=== PATIENT | male | born 1955 | race Two or more races ===

== ENCOUNTER 2019-12-18 14:06 | Emergency (ER) | payer MEDICAID, OTHER ==
[2019-12-18] MEDS ORDERED: THIAMINE 100mg/ml INJ (200mg/2ml VIAL) IV ONE (14:15)
[2019-12-18] MEDS ORDERED: SODIUM CHLORIDE 0.9% 1,000 ML IV ONE ×2 (14:15)
[2019-12-18] MEDS ORDERED: ASPirin 81 mg TAB PO ONE (14:15)
== END 2019-12-18 14:28 | disposition left against medical advice (07) ==
LOC: ER 14:06
DX: R07.89 Other chest pain (principal); E86.0 Dehydration
CPT/HCPCS: 93005

== ENCOUNTER 2020-02-03 05:36 | Inpatient (IN) | payer MEDICAID ==
[~2020-02-03] VITALS: Ht 182.9 cm; Wt 90.9 kg
[2020-02-03] MEDS ORDERED: SODIUM CHLORIDE 0.9% 1,000 ML IV ONE ×2 (07:15)
[2020-02-03] MEDS ORDERED: ONDANSETRON HCL 4 MG/2 ML VIAL IV ONE (07:15)
[2020-02-03] MEDS ORDERED: MORPHINE SULFATE 4 MG/ML SYR/VIAL IV ONE (07:15)
[2020-02-03 07:20] LABS: Basophils # (auto) 0 10 ^3/uL (0-0.2); Eosinophils # (auto) 0 10 ^3/uL (0-0.8); Hemoglobin 10.6 g/dL (13.5-17.5); Lymphocytes # (auto) 0.7 10 ^3/uL (0.4-5.4); Monocytes # (auto) 0.2 10 ^3/uL (0-1.3); Platelet Count (auto) 23 10^3/uL (140-450)
[2020-02-03 07:24] LABS: Basophils % (auto) 0.9 % (0.0-2.0); Eosinophils % (auto) 1.1 % (0.0-7.0); Hematocrit 34.1 % (41.0-53.0); Lymphocytes % (auto) 41.1 % (10.0-50.0); Mean Corpuscular Hemoglobin 23.2 pg (28.0-32.0); Mean Corpuscular Volume 74.6 fL (80.0-100.0); Monocytes % (auto) 10.7 % (0.0-12.0); Neutrophils # (auto) 0.8 10 ^3/uL (1.6-8.6); Neutrophils % (auto) 46.2 % (37.0-80.0); Red Blood Cells 4.57 10^6/uL (4.5-5.90)
[2020-02-03 07:42] LABS: White Blood Cell 1.8 10^3/uL (4.4-10.8)
[2020-02-03 07:52] LABS: Chloride 108 mmol/L (98-107); Potassium 3.3 mmol/L (3.5-5.1); Sodium 141 mmol/L (136-145)
[2020-02-03 08:04] LABS: Alanine Aminotransferase 52 U/L (16-61); Albumin 3.3 g/dL (3.4-5.0); Alkaline Phosphatase 125 U/L (45-117); Anion Gap 15 (5-15); Aspartate Aminotransferase 123 U/L (15-37); BUN/Creatinine Ratio 14.3; Bilirubin, Total 3.3 mg/dL (0.2-1.0); Blood Urea Nitrogen 12 mg/dL (7-18); Calcium 7.9 mg/dL (8.5-10.1); Carbon Dioxide 18 mmol/L (21-32); GFR African American 119 mL/min; GFR Non-African American 98 mL/min; Glucose 117 mg/dL (74-106); Total Protein 6.5 g/dL (6.4-8.2)
[2020-02-03] MEDS ORDERED: ALUM & MAG HYDROX-SIMETH LIQ(MAALOX) 30 ML PO ONE ×2 (08:30→08:45)
[2020-02-03] MEDS ORDERED: LORazepam 2MG/ML-1ML VIAL ONE (08:43)
[2020-02-03] MEDS ORDERED: DONNATAL 5ml ORAL Elix (BELLADONNA ALK-PHENOBARB) PO ONE (08:45)
[2020-02-03] MEDS ORDERED: LIDOCAINE VISCOUS 2% 15ML UD PO ONE ×2 (08:45)
[2020-02-03] MEDS ORDERED: LORazepam 2MG/ML-1ML VIAL IV ONE (09:00)
[2020-02-03] MEDS ORDERED: MORPHINE SULF INJ 2 MG/ML SYRINGE 1ML IV PRN (10:45)
[2020-02-03] MEDS ORDERED: NITROGLYCERIN 0.4 MG SL TAB SL PRN (10:45)
[2020-02-03] MEDS ORDERED: LORazepam 2MG/ML-1ML VIAL IV PRN (10:45)
[2020-02-03] MEDS ORDERED: OCTREOTIDE ACETATE 100 MCG in SODIUM CHL 0.9% 50 ML IV ONE (10:45)
[2020-02-03 12:00] VITALS: BP 168/82
--- NOTE | 2020-02-03 12:06 | NUR ---
RECEIVED FROM ED C/C EPIGASTRIC PAIN WITH GI BLEED AND SZ IN ED. NO ACTIVE SZ AT THIS TIME PT AXO. SLOW TO RESPOND, EDUCATED ON POC, ANSWERS QUESTIONS APPROPRIATELY. NEW I V ACCESS OBTAINED. SIDE RAILS PADDED FOR SAFETY. LS CTA, PT ON 2 L NC, SPO2 WNL. PT HTN, MEDICATING FOR HTN. SEE E-MAR. PT ON BANANA BAG AND OCTREOTIDE FOR GI BLEED PREVENTION.
[2020-02-03] MEDS: chlordiazePOXIDE HCL 25 MG CAP PO SCH ×2 (12:58→19:36)
[2020-02-03] MEDS: LABETALOL HCL 5 MG/ML 4ML SYRINGE IV PRN ×2 (13:04→19:38)
[2020-02-03] MEDS ORDERED: ONDANSETRON HCL 4 MG/2 ML VIAL ONE (13:47)
[2020-02-03] MEDS: ONDANSETRON HCL 4 MG/2 ML VIAL IV PRN ×2 (13:56→22:23)
[2020-02-03] MEDS: OCTREOTIDE ACETATE 500 MCG in SODIUM CHL 0.9% 99 ML IV SCH ×2 (14:03→20:56)
[2020-02-03] MEDS: FOLIC ACID 1 MG, MULTIPLE VITAMIN 10 ML, MAGNESIUM SULF SDV 50% 8 MEQ, THIAMINE INJ 100... INJ SCH ×5 (15:53)
[2020-02-03 16:32] VITALS: BP 160/78
--- NOTE | 2020-02-03 19:23 | NUR ---
Opening Shift Note Received report and Assumed care of patient, awake and alert and resting quietly in bed.
[2020-02-03 20:00] VITALS: BP 159/81
--- NOTE | 2020-02-03 20:30 | NUR ---
Bathroom Assisted patient to the bathroom patient self ambulated to and from the bathroom with minimal weakness,
--- NOTE | 2020-02-03 20:35 | NUR ---
Linen Change Provided patient with complete linen change.
[2020-02-03] MEDS: PANTOPRAZOLE 40 MG/10 ML VIAL INJ IV SCH (20:56)
[2020-02-03] MEDS: LACTULOSE 20Gm/30ML SOLN PO SCH (21:05)
--- NOTE | 2020-02-03 21:05 | NUR ---
Physician Call Received call from Dr. Aurora Osullivan, regarding EDG for patient in AM , to evaluate Morning Labs prior to determining if EDG will be perfomed.
--- NOTE | 2020-02-03 22:05 | NUR ---
Family updated on pt status Brother Donal updated on patient's status and condition. All questions and concerns addressed. Family Member verbalized understanding of all subjects covered.
--- NOTE | 2020-02-03 23:05 | NUR ---
Bathroom Patient assisted to the bathroom patient self ambulated to and from the bathroom with minimal weakness.
[2020-02-04] VITALS: BP 126/52
--- NOTE | 2020-02-04 00:21 | NUR ---
PATIENT ROUNDING Patient readjusted in bed, patient reoriented to surroundings patient alert to self at this time.
[2020-02-04] MEDS: chlordiazePOXIDE HCL 25 MG CAP PO SCH ×5 (00:24→23:24)
--- NOTE | 2020-02-04 02:36 | NUR ---
PATIENT ROUNDING Patient readjusted in bed and reoriented to surroundings patient is alert to self at this time.
--- NOTE | 2020-02-04 02:45 | NUR ---
Patient Rounding patient restless in bed, gave patient a warm blanket and reoriented, patient alert to self and place at this time.
[2020-02-04 03:35] LABS: Basophils # (auto) 0 10 ^3/uL (0-0.2); Eosinophils # (auto) 0.1 10 ^3/uL (0-0.8); Hemoglobin 10.3 g/dL (13.5-17.5); Monocytes # (auto) 0.5 10 ^3/uL (0-1.3); White Blood Cell 3.1 10^3/uL (4.4-10.8)
[2020-02-04 03:37] LABS: Eosinophils % (auto) 3.1 % (0.0-7.0); Hematocrit 33.7 % (41.0-53.0); Lymphocytes # (auto) 0.4 10 ^3/uL (0.4-5.4); Lymphocytes % (auto) 14.5 % (10.0-50.0); Mean Corpuscular Hemoglobin 23.2 pg (28.0-32.0); Mean Corpuscular Hgb Conc. 30.5 g/dL (32.0-36.0); Mean Corpuscular Volume 76.1 fL (80.0-100.0); Monocytes % (auto) 16.6 % (0.0-12.0); Neutrophils % (auto) 64.8 % (37.0-80.0); Nucleated Red Blood Cells % 0.1 %; Platelet Count (auto) 22 10^3/uL (140-450); Red Blood Cells 4.43 10^6/uL (4.5-5.90)
[2020-02-04] MEDS: LABETALOL HCL 5 MG/ML 4ML SYRINGE IV PRN ×3 (03:39→20:02)
--- NOTE | 2020-02-04 03:39 | NUR ---
LABETALOL patient blood presser 155/76 medicated per provider order.
[2020-02-04 03:43] LABS: Red Cell Distribution Width 24.1 % (11.8-14.3)
[2020-02-04 03:52] LABS: Albumin 3.1 g/dL (3.4-5.0); Calcium 7.7 mg/dL (8.5-10.1); Potassium 3.7 mmol/L (3.5-5.1)
[2020-02-04 03:56] LABS: INR 1.24 (0.9-1.15); Partial Thromboplastin Time 27.2 sec (23.0-31.2)
[2020-02-04 03:57] LABS: BUN/Creatinine Ratio 14.5; Bilirubin, Total 3.6 mg/dL (0.2-1.0); Total Protein 6.3 g/dL (6.4-8.2)
[2020-02-04 04:00] VITALS: BP 155/76
[2020-02-04] MEDS: ONDANSETRON HCL 4 MG/2 ML VIAL IV PRN ×2 (04:46→21:42)
--- NOTE | 2020-02-04 05:00 | NUR ---
Morning Care Provided patient with clean gown and partial soap water bath. patient tolerated process with minimal distress.
--- NOTE | 2020-02-04 06:41 | NUR ---
Shift END Note will provided shift report and endorse care, patient has episodes of confusion and forgets where he is, patient reoriented easily. patient is very restless through out the shift, patient has taken Zofran thought out the shift due to nausea. patient is able to self ambulate with stand by assist to restroom.
[2020-02-04] MEDS: OCTREOTIDE ACETATE 500 MCG in SODIUM CHL 0.9% 99 ML IV SCH ×2 (06:53→20:03)
[2020-02-04 08:00] VITALS: BP 156/79
--- NOTE | 2020-02-04 08:15 | NUR ---
OPENING NOTE RECEIVED REPORT FROM CAROL ZULETA. PATIENT ON ROOM AIR SATING >95%. FOLLOWING COMMANDS. ASSISTED PATIENT TO BATHROOM AND BACK. ONE BM IN TOILET. PATIENT TOLERATED WELL. SKIN ASSESSED AND INTACT. FOR GTTS AND THEIR TITRATIONS SEE IV SPREAD SHEET. NO SIGNS AND SYMPTOMS OF BLEEDING. ALL FALL AND SAFETY PRECAUTIONS IN PLACE. FOR MORE INFORMATION SEE INTERVENTIONS.
[2020-02-04] MEDS: PANTOPRAZOLE 40 MG/10 ML VIAL INJ IV SCH ×2 (10:23→21:41)
[2020-02-04] MEDS: LACTULOSE 20Gm/30ML SOLN PO SCH ×2 (10:23→21:42)
--- NOTE | 2020-02-04 10:54 | NUR ---
ASSISTED PATIENT TO BATHROOM/LINEN CHANGE WITH MINIMAL ASSISTANCE, HELPED PATIENT TO BATHROOM TO URINATE. SKIN REASSESSED AND NO NEW BREAKDOWN NOTED. COMPLETE LINEN CHANGE PROVIDED
--- NOTE | 2020-02-04 11:29 | NUR ---
AT BEDSIDE MD RAY Byrd BEDSIDE, UPDATED ON PATIENT STATUS, NO NEW ORDERS RECEIVED Addendum: 02/04/20 at 1132 by Carlos Alberto Fleming RN WRONG PATIENT
--- NOTE | 2020-02-04 11:32 | NUR ---
RECEIVED CALL FROM BROTHER AFTER CORRECT PASSWORD WAS GIVEN, UPDATED BROTHER ON PATIENT STATUS. ALL QUESTIONS ADDRESSED AT THIS TIME
[2020-02-04 12:00] VITALS: BP 136/67
[2020-02-04] MEDS: FOLIC ACID 1 MG, MULTIPLE VITAMIN 10 ML, MAGNESIUM SULF SDV 50% 8 MEQ, THIAMINE INJ 100... INJ SCH ×5 (12:17)
--- NOTE | 2020-02-04 12:53 | NUR ---
MD MONTERO AT BEDSIDE UPDATED ON PATIENT STATUS, NEW ORDERS RECEIVED
[2020-02-04 16:00] VITALS: BP 145/79
--- NOTE | 2020-02-04 19:05 | NUR ---
Opening Shift Note Recieved shift report and Assumed care of patient, awake and laying quietly in bed,
[2020-02-04 20:00] VITALS: BP 162/83
--- NOTE | 2020-02-04 20:15 | NUR ---
Bathroom Privileges Stand by assist as patient self ambulated to and from the restroom. patient unable to make provide urine sample at this time.
--- NOTE | 2020-02-04 21:35 | NUR ---
Patient Out of Bed Patient found up at the monitor unpluging wires, Patient educated on the need for the monitor data patient reoriented and repositioned in bed and reinforced education not to pull on or unplug wires from the monitor. patient verbalized understanding at this time.
--- NOTE | 2020-02-04 21:50 | NUR ---
Patient OOB Patient attempting to get out of bed with out stand by assistance, patient reeducated on need to have assistance, patient IV lines remain intact even though patient pulled quite a bit on the lines.
--- NOTE | 2020-02-04 22:00 | NUR ---
Hospitalist Paged To request medication to aid patient with restlessness.
--- NOTE | 2020-02-04 22:10 | NUR ---
Patient OOB Patient out of bed attempting to find items patient reeducated that items are at home with family and reoriented patient to surroundings patient verbalized understanding at this time
--- NOTE | 2020-02-04 22:50 | NUR ---
Received call from
[2020-02-04] MEDS ORDERED: LORazepam 2MG/ML-1ML VIAL IV ONE (23:00)
--- NOTE | 2020-02-04 23:04 | NUR ---
Anxiety / Restlessness Patient medicated per MD order
--- NOTE | 2020-02-04 23:55 | NUR ---
Patient Rounding assisted patient readjust in bed and make comfortable.
[2020-02-05] VITALS (7 sets, daily range): BP systolic 130–169; BP diastolic 67–88
--- NOTE | 2020-02-05 00:30 | NUR ---
RESTLESS/ANXIETY/CONFUSION: Pt very restless, climbing out of bed and stating he is leaving the hospital. Pt states he is currently in [place]. Pt re-oriented to place and situation. Pt states he wants to speak with his brother. Pt's bother, Donal, called and spoke with pt. Pt displeased with conversation and pt states he will take an Uber or Lyft to his desired destination down in [facility]. Pt, however, has no cellphone, wallet, ID, or amaya/credit card. Assisted pt in locating belongings and confirmed pt has none of these items. Pt walked around entire room continuing to search for phone, and pt attempted to go to nurses' station and into other pt's rooms. Pt guided back into bed and contacted pt's brother to speak with pt again. I also spoke with pt's brother Donal. Donal states that perhaps pt needs to be sedated as he believes pt needs to stay in hospital and that he will not come to pick pt up as per pt's request. Pt attempting to locate "U[employer] cecile" on hospital telephone. Pt finally agreed to stay until morning and pt assisted back into bed at 0100. All leads and pulse-ox reattached. To continue to monitor pt.
--- NOTE | 2020-02-05 01:15 | NUR ---
RESTLESS/ANXIETY: Pt continues to climb out of bed. Pt states he heard his brother's voice. Pt assisted back into bed. Pt climbed out of bed again stating he has paperwork to complete. Pt also broke lead to monitor. Pt re-oriented and assisted back into bed. Hospitalist paged and order received for Haldol 2mg IM as pt becoming more and more aggressive towards staff. Pt to be medicated.
[2020-02-05] MEDS ORDERED: HALOPERIDOL LACTATE 5 MG/ML INJ VIAL IM ONE (01:30)
--- NOTE | 2020-02-05 01:31 | NUR ---
RESTLESS/ANXIETY/CONFUSION: Pt very restless, climbing out of bed and stating he is leaving the hospital, patient medicated per MD order
--- NOTE | 2020-02-05 02:00 | NUR ---
OUTBURST Patient is attempting to break bed rail patient reoriented to place and situation patient, patient insists that he needs to go hang out with his brother smoke a cigarette and drink a beer, patient reoriented and educated on why he is in the hospital.
--- NOTE | 2020-02-05 02:17 | NUR ---
VERBALLY ABUSIVE Patient is currently verbally Abusive to staff threatening harm to staff and staff family, patient is determined to leave the hospital, patient has no means of leaving family member called and state patient needs to remain for what ever treatment the Doctor thinks he needs.
--- NOTE | 2020-02-05 02:45 | NUR ---
CODE EDE Patient physically abusive to staff punching and kicking at staff Code Ede called MD hernandez
--- NOTE | 2020-02-05 02:55 | NUR ---
CONFUSED Patient is asking that we let the police in, explained he is in the hospital patient confused and state that he is not in the hospital, Patient yelling for the police in [place] now.
--- NOTE | 2020-02-05 02:58 | NUR ---
Recieved Call from MD orders provided
[2020-02-05] MEDS ORDERED: LORazepam 2MG/ML-1ML VIAL IV ONE ×2 (03:00→06:15)
[2020-02-05] MEDS ORDERED: LORazepam 2MG/ML-1ML VIAL ONE (03:03)
--- NOTE | 2020-02-05 03:03 | NUR ---
Restless /Confusion/ Combative patient medicated per provider order, patient continues to yell out for police, doctor patient reoriented to place and time. patient fails to reoriented at this time.
--- NOTE | 2020-02-05 03:05 | NUR ---
Patient IV OUT / ATIVAN Patient Left AC IV is out Ativan not infused into patient Ativan wasted and redrawn for infusion into left form IV Site
--- NOTE | 2020-02-05 03:10 | NUR ---
Left AC IV IV sited cleaned, manual pressure applied to site, covered in gauze and secured with Coban
--- NOTE | 2020-02-05 03:15 | NUR ---
Hallucinations Patient currently states that he is needs to trim the roses, patient continues to verbally abuse staff and yelling out for police.
[2020-02-05 03:25] LABS: Basophils # (auto) 0.1 10 ^3/uL (0-0.2); Eosinophils # (auto) 0.2 10 ^3/uL (0-0.8); Hemoglobin 10.7 g/dL (13.5-17.5); Mean Corpuscular Hemoglobin 23.3 pg (28.0-32.0); Monocytes # (auto) 0.6 10 ^3/uL (0-1.3); Red Blood Cells 4.58 10^6/uL (4.5-5.90)
[2020-02-05 03:27] LABS: Basophils % (auto) 1.2 % (0.0-2.0); Eosinophils % (auto) 5.2 % (0.0-7.0); Hematocrit 35.1 % (41.0-53.0); Mean Corpuscular Hgb Conc. 30.4 g/dL (32.0-36.0); Mean Corpuscular Volume 76.6 fL (80.0-100.0); Monocytes % (auto) 12.7 % (0.0-12.0); Neutrophils # (auto) 2.6 10 ^3/uL (1.6-8.6); Neutrophils % (auto) 57.9 % (37.0-80.0); Nucleated Red Blood Cells % 0.2 %; Platelet Count (auto) 33 10^3/uL (140-450); White Blood Cell 4.4 10^3/uL (4.4-10.8)
[2020-02-05 03:41] LABS: INR 1.28 (0.9-1.15); Partial Thromboplastin Time 26.6 sec (23.0-31.2)
[2020-02-05 03:51] LABS: Red Cell Distribution Width 24.4 % (11.8-14.3)
--- NOTE | 2020-02-05 03:52 | NUR ---
Confusion / Hallucination Patient currently calling out for family members and stating he is in the garage attempts to reorient patient continue to fail
[2020-02-05 03:59] LABS: Albumin 3.1 g/dL (3.4-5.0); Calcium 7.8 mg/dL (8.5-10.1); Potassium 3.6 mmol/L (3.5-5.1)
--- NOTE | 2020-02-05 04:00 | NUR ---
RESTRAINT ORDER patient continues to act out against staff attempting to hit and kick staff many attempts to reorient and educate patient have failed.
--- NOTE | 2020-02-05 04:04 | NUR ---
Patient Yelling Patient calling out for Donal ([id number]) patient oriented to room and hospital patient became verbally abusive to staff member.
[2020-02-05 04:05] LABS: BUN/Creatinine Ratio 12.2; Bilirubin, Total 3.8 mg/dL (0.2-1.0); Total Protein 6.4 g/dL (6.4-8.2)
--- NOTE | 2020-02-05 04:15 | NUR ---
RESTRAINTS APPLIED Soft Restraints applied to right and left Wrist patient fighting with staff while restraints are applied
--- NOTE | 2020-02-05 04:22 | NUR ---
Confusion Patient continues to be confused calling out for family members and being aggressive and verbally abusive to staff.
--- NOTE | 2020-02-05 04:30 | NUR ---
Restraints Patient is fighting against restraints tugging and pulling patient is using full strength against restraints patient skin is intact at this time.
--- NOTE | 2020-02-05 04:43 | NUR ---
Hallucination Patient thinks he is working on cars and needs tools patient is calling for son and family member attempts to orient patient continue to fail
--- NOTE | 2020-02-05 04:50 | NUR ---
LEFT Forearm IV IV dislodge and bleeding. Bleeding stopped with Manual pressure, gauze applied and secured with Coban
--- NOTE | 2020-02-05 05:00 | NUR ---
RESTRAINT REMOVED FROM LEFT WRIST patient fighting against restraints patient swelling noted to the left wrist restraint moved to Left leg and mittens applied
--- NOTE | 2020-02-05 05:10 | NUR ---
CCT at bedside Patient requiring continued one on one care at this time attempts are being made to reorient and calm patient patient continues to be confused combative and verbally abusive
[2020-02-05] MEDS: chlordiazePOXIDE HCL 25 MG CAP PO SCH ×4 (05:18→22:55)
--- NOTE | 2020-02-05 05:20 | NUR ---
RESTRAINT Assessment Patient continues to fight against restraints CCT is at bedside 1 on 1 to help prevent patient from injuring self. patient continues to be aggressive towards staff.
--- NOTE | 2020-02-05 05:55 | NUR ---
security incident response specialist at beside Attempting to start new iv access
--- NOTE | 2020-02-05 06:00 | NUR ---
NEW IV New IV Site is 20G to Left Foot.
--- NOTE | 2020-02-05 06:05 | NUR ---
Provider Paged Patient is agitated and aggressive called provider for orders
--- NOTE | 2020-02-05 06:15 | NUR ---
Received Call from Provider Orders provided and carried out.
--- NOTE | 2020-02-05 06:18 | NUR ---
Agitation Patient medicated per provider order
--- NOTE | 2020-02-05 06:47 | NUR ---
CCT at bedside patient continues to need constant 1 on 1 supervision patient remains agitated patient is fighting against restraints attempts by CCT to prevent patient from injuring self.
--- NOTE | 2020-02-05 07:12 | NUR ---
REPORT RECEIVED FROM PALLET SORTER RN
--- NOTE | 2020-02-05 07:38 | NUR ---
PATIENT AGITATION PULLNG AT LINES, TRYING TO GET OUT OF BED, CONFUSED AND AGITATED SOFT RESTRAINTS ON BILATERALLY AND TO LEFT LOWER LIMB. REDNESS NOTED TO RESTRAINT SITES AND TO RIGHT LOWER ANKLE AREA.
[2020-02-05] MEDS: LABETALOL HCL 5 MG/ML 4ML SYRINGE IV PRN (08:10)
[2020-02-05 09:17] LABS: Hepatitis B Surface Antibody Negative
[2020-02-05 09:41] LABS: Hepatitis A Total Antibody Positive
--- NOTE | 2020-02-05 10:00 | NUR ---
DR. MONTERO AT BEDSIDE
--- NOTE | 2020-02-05 10:02 | NUR ---
MENTATION ATTEMPTED TO REMOVE RESTRAINTS FROM UPPER EXTREMITIES, FINGERS AND HANDS BILATERALLY WARM, PINK, BRISK CAPILLARY REFILL AND GOOD FLOW TO LOWER EXTREMITIES. PATIENT BECOMING EXTREMELY AGITATED ATTEMPTING TO ROLL OUT OF BED AND PULLING AT IV SITE
[2020-02-05 10:15] LABS: Hepatitis B Core Total AB Negative; Hepatitis B Surface Antigen Negative (Negative); Hepatitis C Antibody Negative (Negative)
[2020-02-05] MEDS: PANTOPRAZOLE 40 MG/10 ML VIAL INJ IV SCH ×2 (10:28→21:41)
[2020-02-05] MEDS: LACTULOSE 20Gm/30ML SOLN PO SCH ×2 (10:29→21:41)
[2020-02-05] MEDS: CLOTRIMAZOLE 1 % CREAM 15GM TOP SCH ×2 (10:29→21:41)
[2020-02-05] MEDS ORDERED: PHYTONADIONE (VIT K)10 MG/ML 1ML VIAL SUBCUT ONE (10:45)
[2020-02-05] MEDS: OCTREOTIDE ACETATE 500 MCG in SODIUM CHL 0.9% 99 ML IV SCH ×3 (11:30→22:55)
--- NOTE | 2020-02-05 12:00 | NUR ---
RESTRAINTS REMOVED GOOD FLOW TO LOWER EXTREMITIES WITH SOME REDNESS NOTED AROUND WRISTS. RESTRAINTS RE APPLIED WITH RM ABLE TO PLACE TWO FINGERS IN BETWEEN SOFT RESTRAINS AND WRIST, AGITATION NOTED WITH NO DISTRESS
[2020-02-05] MEDS: LORazepam 2MG/ML-1ML VIAL IV PRN ×2 (12:10→23:09)
[2020-02-05] MEDS ORDERED: LABETALOL HCL 5 MG/ML ML 20ML VIAL IV PRN (12:15)
[2020-02-05] MEDS: FOLIC ACID 1 MG, MULTIPLE VITAMIN 10 ML, MAGNESIUM SULF SDV 50% 8 MEQ, THIAMINE INJ 100... INJ SCH ×5 (12:26)
--- NOTE | 2020-02-05 12:38 | NUR ---
IV insertion IV access obtained, via clean sterile technique by inserting 20 gauge catheter at RFA after 1 attempt. IV secured properly. No trauma to site. Patient tolerated well.
--- NOTE | 2020-02-05 13:51 | NUR ---
FAMILY DAUGHTER UPDATED ON PATIENT STATUS. ALL QUESTIONS AND CONCERNS ADDRESSED AT THIS TIME
--- NOTE | 2020-02-05 14:36 | NUR ---
Nutrition Assessment Note please see attached link for complete assessment Est energy needs BW 97 [id number] kcal (23-25 kcal/kg BW) Est protein needs: 97-106 g (1.0-1.1 g/kg BW) Will reassess prn. Addendum: 02/05/20 at [address] Amended: Links added.
--- NOTE | 2020-02-05 15:11 | NUR ---
ABUNDIO WONG UPDATED ON PATIENT STATUS. ALL QUESTIONS AND CONCERNS ADDRESSED AT THIS TIME
--- NOTE | 2020-02-05 20:00 | NUR ---
SHIFT OPENING NOTE RECEIVED PATIENT LAYING IN BED CONFUSED. UNABLE TO COMPREHEND WHAT HE IS SAYING. ON ROOM AIR. PATIENT IS ON 3 POINT M/S RESTRAINTS. SANDOSTATIN INFUSING AT 10 ML/H. RODRIGUEZ CATH DRAINING YELLOW URINE TO GRAVITY. IVS TO THE LEFT FOOT AND RIGHT FOREARM. PHYSICAL ASSESSMENT COMPLETED, SEE INTERVENTIONS. ATTEMPTED TO EDUCATE PATIENT BUT UNSUCCESSFUL DUE TO MENTAL STATUS. WILL CLOSELY MONITOR.
--- NOTE | 2020-02-06 02:20 | NUR ---
MORNING HYGIENE CARE PATIENT TEMPORARILY TAKEN OFF RESTRAINTS FOR BATH. FULL BED BATH PERFORMED WITH CHG WIPES. RODRIGUEZ CARE DONE. GOWN CHANGED. FULL LINEN CHANGED. PATIENT REPOSITIONED FOR COMFORT. TOLERATED IT WELL.
[2020-02-06 03:27] LABS: Basophils # (auto) 0 10 ^3/uL (0-0.2); Eosinophils # (auto) 0.2 10 ^3/uL (0-0.8); Lymphocytes % (auto) 14.4 % (10.0-50.0); Nucleated Red Blood Cells % 0.1 %; White Blood Cell 7.2 10^3/uL (4.4-10.8)
[2020-02-06 03:28] LABS: Basophils % (auto) 0.5 % (0.0-2.0); Eosinophils % (auto) 2.8 % (0.0-7.0); Hematocrit 37.2 % (41.0-53.0); Hemoglobin 11.3 g/dL (13.5-17.5); Mean Corpuscular Hemoglobin 23.7 pg (28.0-32.0); Mean Corpuscular Hgb Conc. 30.5 g/dL (32.0-36.0); Mean Corpuscular Volume 77.9 fL (80.0-100.0); Monocytes # (auto) 0.9 10 ^3/uL (0-1.3); Monocytes % (auto) 12.7 % (0.0-12.0); Neutrophils % (auto) 69.6 % (37.0-80.0); Platelet Count (auto) 72 10^3/uL (140-450); Red Blood Cells 4.78 10^6/uL (4.5-5.90)
[2020-02-06 03:37] LABS: Red Cell Distribution Width 24.4 % (11.8-14.3)
[2020-02-06 04:00] VITALS: BP 133/64
[2020-02-06] MEDS: chlordiazePOXIDE HCL 25 MG CAP PO SCH ×4 (05:40→23:11)
--- NOTE | 2020-02-06 07:25 | NUR ---
END OF SHIFT REPORT GIVEN AND CARE ENDORSED TO VANDANA ZULETA.
[2020-02-06 08:00] VITALS: BP 141/76
--- NOTE | 2020-02-06 08:00 | NUR ---
RESTRAINTS Restraints removed. Patient tolerating well.
[2020-02-06] MEDS: PANTOPRAZOLE 40 MG/10 ML VIAL INJ IV SCH ×2 (09:40→21:09)
[2020-02-06] MEDS: OCTREOTIDE ACETATE 500 MCG in SODIUM CHL 0.9% 99 ML IV SCH ×2 (09:40→19:10)
[2020-02-06] MEDS: CLOTRIMAZOLE 1 % CREAM 15GM TOP SCH ×2 (09:41→22:00)
--- NOTE | 2020-02-06 09:45 | NUR ---
MEDICATION Attempted to give patient Lactulose BUT patient is to drowsy and wont open eyes or attempt to take medication. Will notify MD during rounds.
[2020-02-06] MEDS: LACTULOSE 20Gm/30ML SOLN PO SCH ×2 (09:46→22:00)
--- NOTE | 2020-02-06 10:50 | NUR ---
MD Dr. Lira at bedside updated on patient condition with new orders for EGD, obtain consent for EGD. aware the patient was not able to take lactulose secondary to patient being to sleepy.
--- NOTE | 2020-02-06 11:00 | NUR ---
CONSENT Obtained consent for EGD from daughter Diana Cheng via telephone witnessed by Diana ZULETA.
--- NOTE | 2020-02-06 11:05 | NUR ---
MD Dr. Quinones at bedside updated on patient condition and MD spoke to patient and updated on condition. MD aware of potassium 5.1 with no new orders. Will continue to monitor patient. Addendum: 02/06/20 at 1113 by VANDANA SANCHEZ RN WRONG PATIENT.
--- NOTE | 2020-02-06 11:25 | NUR ---
OR Called OR to schedule EGD per Veronica ADMINISTRATIVE PROJECT COORDINATOR states " They will call me back to schedule EGD."
[2020-02-06 11:30] LABS: Urine Bacteria NONE SEEN /hpf (None Seen); Urine Blood 2+ /uL (Negative); Urine Mucus MANY (None Seen); Urine Specific Gravity 1.031 (1.001-1.035); Urine WBC 28 /hpf (0 - 3)
[2020-02-06 12:00] VITALS: BP 148/86
--- NOTE | 2020-02-06 12:45 | NUR ---
COVID 19 Obtained rapid COVID per Dr. Lira.
[2020-02-06] MEDS: FOLIC ACID 1 MG, MULTIPLE VITAMIN 10 ML, MAGNESIUM SULF SDV 50% 8 MEQ, THIAMINE INJ 100... INJ SCH ×5 (13:00)
[2020-02-06] MEDS ORDERED: MIDAZOLAM HCL 5 MG/ML-1ML VIAL ONE (13:32)
--- NOTE | 2020-02-06 14:00 | NUR ---
PRE-OP Patient transported to Pre- op for procedure accompanied by charge nurse Rolf and Heather: snowboarding instructor on and chart with patient.
[2020-02-06] MEDS: fentaNYL CITRATE 100 MCG/2 ML VL ONE ×2 (15:57→16:01)
[2020-02-06 16:50] VITALS: BP 144/72
--- NOTE | 2020-02-06 16:50 | NUR ---
RECEIVED PATIENT Received patient from OR patient tolerated procedure well. Placed back on to bedside monitor: current VS HR 87, RR 15, Temperature 98.1 and blood pressure 144/72. Will continue to monitor patient closely.
--- NOTE | 2020-02-06 16:55 | NUR ---
FAMILY Received phone call from patients brother, password provided and updated given.
--- NOTE | 2020-02-06 17:00 | NUR ---
FAMILY Called patients daughter Diana, correct password provided and updated on patient condition and procedure outcome. All questions and concerns answered.
--- NOTE | 2020-02-06 19:30 | NUR ---
Opening Shift Note: Neuro: A&Ox1-2, very confused, not patient's baseline per report; moves all extremities but is bedrest for patient safety. Cardio: NSR 90s-110s depending on agitation level; SBPs 130s-150s; pulses all palpable; no edema noted. Resp: room air sating high 90s; anterior lung sounds are diminished throughout; dry cough present. GI: NPO related to confusion; BS present; last BM per report was 02/04/20. : connor possibly inserted on 02/04/20 per I/O charting; clear/light devante. Skin: intact but generalized bruising. IVs: left foot 20 g IID inserted on 02/05/20; Right forearm 20 g running Sandostatin at 10 inserted on 02/05/20; right AC 22 g running the remainder of the banana bag @ 125 ml/hr inserted on 02/06/20; left AC 20 running Protonix @ 10 ml/hr inserted on 02/06/20. Will attempt to insert NGT when patient is more calm. enrollment services dean consultation pending for alcohol abuse. Will continue to round/reposition prn.
[2020-02-06] MEDS: LORazepam 2MG/ML-1ML VIAL IV PRN (19:50)
[2020-02-06 20:00] VITALS: BP 141/81
[2020-02-06] MEDS: PANTOPRAZOLE 40mg/50ML NS AE 50 ML IV SCH (21:08)
--- NOTE | 2020-02-06 22:30 | NUR ---
In House COVID swab obtained and sent to lab. Patient placed on COVID precautions.
--- NOTE | 2020-02-06 23:07 | NUR ---
Unable to get NGT inserted: CXR showed that the NG was coiled in the throat. Attempted to reinsert but patient was spitting and attempting to hit/kick staff despite previous IVP ativan for anxiety/restlessness. Unable to get NGT in tonight; will endorse to day shift RN to notify attending/GI.
--- NOTE | 2020-02-06 23:10 | NUR ---
MELYSSA Mansfield, brother, updated on patient's current plan of care after password provided.
[2020-02-07] VITALS: BP 156/84
[2020-02-07] MEDS: PANTOPRAZOLE 40mg/50ML NS AE 50 ML IV SCH ×5 (02:00→18:30)
[2020-02-07] MEDS: LORazepam 2MG/ML-1ML VIAL IV PRN (02:20)
--- NOTE | 2020-02-07 02:24 | NUR ---
Transferred to Tele Room #277 B with Justin. Leach present at bedside for patient safety.
[2020-02-07] MEDS: OCTREOTIDE ACETATE 500 MCG in SODIUM CHL 0.9% 99 ML IV SCH ×2 (04:17→15:47)
[2020-02-07 05:00] VITALS: BP 137/89
[2020-02-07] MEDS: chlordiazePOXIDE HCL 25 MG CAP PO SCH ×3 (06:00→17:54)
[2020-02-07 09:00] VITALS: BP 150/92
[2020-02-07] MEDS: SUCRALFATE 1 GM/10 ML ORAL SUSP PO SCH (10:00)
[2020-02-07] MEDS: CLOTRIMAZOLE 1 % CREAM 15GM TOP SCH ×2 (10:00→21:55)
[2020-02-07] MEDS: LACTULOSE 20Gm/30ML SOLN PO SCH ×2 (10:00→21:55)
--- NOTE | 2020-02-07 10:00 | NUR ---
RICARDO SANTIAGO REGARDING POC. AWAITING CALL BACK.
[2020-02-07] MEDS: PANTOPRAZOLE 40 MG/10 ML VIAL INJ IV SCH ×2 (10:15→21:54)
--- NOTE | 2020-02-07 10:21 | NUR ---
ORAL CARE PROVIDED. NO S/S OF ASPIRATION NOTED.
--- NOTE | 2020-02-07 11:24 | NUR ---
Nutrition Followup Note Pt wt is 98.1 kg Pt was awake, not alert and oriented, with medical personnel when rounded this morning. Pt is with a Clear Liquid diet, appetite is good aeb 75% PO intake per RN doc. Continue to carefully monitor/assist pt with PO intake to meet at least 75% of meals. Est energy needs BW 97 [id number] kcal (23-25 kcal/kg BW) Est protein needs: 97-106 g (1.0-1.1 g/kg BW) Will reassess prn. LABS: CA 7.8 L, BILI 3.8 H, AST 176 H, ALT 66 H, ALB 3.1 L GI: Pt had 1 BM on 02/04 per RN doc BS: 16 mod risk. Refer to wound assessment report for further details. PES: 1) Altered nutrition related lab values r.t current chronic medical condition aeb hypocalcemia, mild hypoalb 2) Inadequate PO intake r.t current medical/mental condition aeb pt`s pt`s on CLD with GI bleed Comments Will continue to monitor PO status, skin status, pertinent labs and weight trends. Will f/u in 2-3 days 1) Continue to carefully monitor/assist pt with PO intake to meet at least 75% of meals. 2) Advance diet as medically feasible 2) Consider PN support if pt unable to tolerate PO 3) Continue current plan of care
[2020-02-07] MEDS: FOLIC ACID 1 MG, MULTIPLE VITAMIN 10 ML, MAGNESIUM SULF SDV 50% 8 MEQ, THIAMINE INJ 100... INJ SCH ×5 (12:00)
[2020-02-07 12:49] VITALS: BP 166/76
--- NOTE | 2020-02-07 15:10 | NUR ---
NG TUBE: ATTEMPTED NG TUBE INSERTION TO R NARE UNSUCCESSFULLY. GRADE CHECKER JR AT BEDSIDE TO ATTEMPT NG TUBE. ATTEMPTS TO R NARE AND L NARE MADE UNSUCCESSFULLY. PATIENT RESTING IN BED SLEEPING. NO S/S OF DISTRESS NOTED AT THIS TIME.
[2020-02-07 16:57] VITALS: BP 135/76
--- NOTE | 2020-02-07 17:18 | NUR ---
REPAGED Ross SANTIAGO TO INFORM OF NG TUBE ATTEMPTS.
--- NOTE | 2020-02-07 19:30 | NUR ---
Opening Shift Note Assumed care of patient, awake and alert. No S/S of distress/SOB or pain. Instructed on POC and to call for assist PRN, will continue to monitor for changes Q1hr and PRN.
[2020-02-07 22:00] VITALS: BP 162/76
[2020-02-08] MEDS: PANTOPRAZOLE 40mg/50ML NS AE 50 ML IV SCH ×4 (00:45→10:32)
[2020-02-08] MEDS ORDERED: OCTREOTIDE ACETATE 500 MCG/ML VL ONE (00:47)
[2020-02-08] MEDS: OCTREOTIDE ACETATE 500 MCG in SODIUM CHL 0.9% 99 ML IV SCH ×4 (00:59→20:45)
[2020-02-08] MEDS: LORazepam 2MG/ML-1ML VIAL IV PRN ×2 (04:19→17:09)
[2020-02-08 05:00] VITALS: BP 146/84
[2020-02-08] MEDS: chlordiazePOXIDE HCL 25 MG CAP PO SCH ×4 (06:00→18:00)
[2020-02-08 07:21] LABS: Hemoglobin 11.6 g/dL (13.5-17.5); Red Blood Cells 4.85 10^6/uL (4.5-5.90)
[2020-02-08 07:23] LABS: Hematocrit 37.7 % (41.0-53.0); Mean Corpuscular Hemoglobin 23.8 pg (28.0-32.0); Mean Corpuscular Hgb Conc. 30.6 g/dL (32.0-36.0); Mean Corpuscular Volume 77.7 fL (80.0-100.0); Platelet Count (auto) 65 10^3/uL (140-450)
[2020-02-08 07:30] LABS: Potassium 3.5 mmol/L (3.5-5.1)
[2020-02-08 07:36] LABS: Red Cell Distribution Width 25.1 % (11.8-14.3)
[2020-02-08 07:38] LABS: Blast Cells 0; Metamyelocytes % 0; Myelocytes % 0; Promyelocytes % 0; Reactive Lymphocytes 0
--- NOTE | 2020-02-08 07:40 | NUR ---
Opening shift note Assumed care patient in bed arousable to light shaking. Patient unable to answer orientation questionnaire. Patient is confused. No s/s of pain or distress noted at this time. Bed in lowest, locked position, side rails x2 up. Pastrana patent draining dark devante urine. Sitter at bedside for safety. Will continue care.
[2020-02-08 07:41] LABS: BUN/Creatinine Ratio 24.4; Calcium 8.2 mg/dL (8.5-10.1)
[2020-02-08 08:45] LABS: Band Neutrophils % (manual) 3; Basophils % (manual) 1 (0.0-2.0); Eosinophils % (manual) 3 (0-7); Lymphocytes % (manual) 12 (10.0-50.0); Monocytes % (manual) 22 (0-12)
[2020-02-08 09:00] VITALS: BP 156/75
[2020-02-08] MEDS: LACTULOSE 20Gm/30ML SOLN PO SCH ×3 (10:00→21:52)
[2020-02-08] MEDS: PANTOPRAZOLE 40 MG/10 ML VIAL INJ IV SCH ×2 (10:31→21:51)
[2020-02-08] MEDS: SUCRALFATE 1 GM/10 ML ORAL SUSP PO SCH (10:31)
[2020-02-08] MEDS: CLOTRIMAZOLE 1 % CREAM 15GM TOP SCH ×2 (10:32→21:51)
[2020-02-08] MEDS: FOLIC ACID 1 MG, MULTIPLE VITAMIN 10 ML, MAGNESIUM SULF SDV 50% 8 MEQ, THIAMINE INJ 100... INJ SCH ×5 (12:00)
[2020-02-08 13:00] VITALS: BP 141/91
--- NOTE | 2020-02-08 14:00 | NUR ---
NG/OG TUBE ATTEMPTED. ATTEMPTED NG TUBE INSERTION TO R NARE UNSUCCESSFULLY. ATTEMPTED OG TUBE INSERTION UNSUCCESSFULLY. ELECTRONICS RECYCLER JR AT BEDSIDE TO ATTEMPT OG TUBE UNSUCCESSFULLY. PATIENT WAS RESISTIVE TO CARE AND AGITATED. PATIENT UNWILLING TO COOPERATE WITH PROCEDURE. WILL NOTIFY MD AND CONTINUE CARE.
--- NOTE | 2020-02-08 14:10 | NUR ---
GI paged Dr. Ashok Osullivan paged at this time regarding unsuccessful NG/OG tube placement. New orders received at this time for Lactulose 473ml via Rectum one time order. Order read back and verified by this RN. Will implement orders and continue care.
[2020-02-08] MEDS ORDERED: LACTULOSE 10g/15ml SOLN PR ONE (14:15)
[2020-02-08 17:00] VITALS: BP 108/64
--- NOTE | 2020-02-08 17:50 | NUR ---
Rectal tube Unable to insert rectal tube to administer Lactulose solution as per MD orders. Patient resisting to turn and stay in lateral position for medication administration. Four staff members attempting to turn patient but patient is very combative and continues to move and twist. label drier Violeta at bedside during this RN's attempt to place rectal tube. label drier also attempted to place rectal tube without success. Will notify Dr. Ashok Osullivan and continue to monitor patient.
--- NOTE | 2020-02-08 19:30 | NUR ---
Opening Shift Note Assumed care of patient, fatigued and asleep. No S/S of distress/SOB or pain. Instructed on POC and to call for assist PRN, will continue to monitor for changes Q1hr and PRN.
--- NOTE | 2020-02-08 20:46 | NUR ---
spoke with Dr. Osullivan. she is aware that the placement of the rectal tube was unsuccessful. no further orders obtained.
[2020-02-08 22:00] VITALS: BP 127/55
[2020-02-09] MEDS: LORazepam 2MG/ML-1ML VIAL IV PRN (03:14)
[2020-02-09 06:00] VITALS: BP 144/64
[2020-02-09] MEDS: chlordiazePOXIDE HCL 25 MG CAP PO SCH ×2 (06:00)
[2020-02-09] MEDS: LACTULOSE 20Gm/30ML SOLN PO SCH ×3 (06:00→22:00)
[2020-02-09] MEDS: OCTREOTIDE ACETATE 500 MCG in SODIUM CHL 0.9% 99 ML IV SCH ×3 (06:14→17:30)
--- NOTE | 2020-02-09 07:20 | NUR ---
Opening shift note Assumed care patient in bed and arousable to light shaking. Patient unable to answer orientation questionnaire. Patient is confused. No s/s of pain or distress noted at this time. Bed in lowest, locked position, side rails x2 up. Pastrana patent draining dark devante urine. Sitter at bedside for safety. Will continue care.
[2020-02-09 08:13] LABS: Hemoglobin 11.4 g/dL (13.5-17.5); Mean Corpuscular Hemoglobin 23.8 pg (28.0-32.0); Mean Corpuscular Volume 78.5 fL (80.0-100.0); White Blood Cell 5.9 10^3/uL (4.4-10.8)
[2020-02-09 08:16] LABS: Hematocrit 37.4 % (41.0-53.0); Mean Corpuscular Hgb Conc. 30.4 g/dL (32.0-36.0); Platelet Count (auto) 81 10^3/uL (140-450); Red Blood Cells 4.77 10^6/uL (4.5-5.90)
[2020-02-09 08:30] LABS: Red Cell Distribution Width 24.7 % (11.8-14.3)
[2020-02-09 08:32] LABS: Basophils % (manual) 0 (0.0-2.0); Blast Cells 0; Metamyelocytes % 0; Myelocytes % 0; Promyelocytes % 0; Reactive Lymphocytes 0
[2020-02-09 08:42] LABS: Potassium 3.5 mmol/L (3.5-5.1)
[2020-02-09 08:48] LABS: Albumin 2.7 g/dL (3.4-5.0); Bilirubin, Total 4.5 mg/dL (0.2-1.0); Calcium 8.1 mg/dL (8.5-10.1); Total Protein 6.6 g/dL (6.4-8.2)
[2020-02-09 09:00] VITALS: BP 157/81
[2020-02-09] MEDS: SUCRALFATE 1 GM/10 ML ORAL SUSP PO SCH (09:15)
[2020-02-09] MEDS: PANTOPRAZOLE 40 MG/10 ML VIAL INJ IV SCH ×2 (09:19→22:59)
[2020-02-09] MEDS: CLOTRIMAZOLE 1 % CREAM 15GM TOP SCH ×2 (09:25→23:11)
--- NOTE | 2020-02-09 11:15 | NUR ---
Patient is confused and in soft restraints. Patient is unable to safely participate in P.T. today.
[2020-02-09] MEDS ORDERED: PPN PER PHARMACY 0 ML IV SCH (11:30)
[2020-02-09] MEDS ORDERED: levoFLOXacin 500MG 100 ML IV ONE (11:30)
[2020-02-09 11:56] LABS: Magnesium 2.4 mg/dL (1.6-2.6); Phosphorus 2.6 mg/dL (2.5-4.90)
[2020-02-09 12:00] LABS: Pre Albumin 5.6 mg/dL (20.0-40.0)
[2020-02-09 12:12] LABS: Band Neutrophils % (manual) 1; Eosinophils % (manual) 2 (0-7); Lymphocytes % (manual) 16 (10.0-50.0); Monocytes % (manual) 15 (0-12)
--- NOTE | 2020-02-09 12:34 | NUR ---
Nutrition Followup Note Pt wt is 97.0 kg Pt was no on the floor d/t medical procedure when rounded this morning. Pt is with a Clear Liquid diet with 0% PO intake d/t pt is ALOC, lethargic and unable to swallow per MD note. Per RN doc, several attempts have been made to place a NG tube, all unsuccessful. Per MD note, Pt has no IV access at this time, will decide how to proceed with providing pt with nutrition support s/p surgery. Est energy needs BW 97 [id number] kcal (23-25 kcal/kg BW) Est protein needs: 97-106 g (1.0-1.1 g/kg BW) Will reassess prn. LABS: CA 8.1 L, BILI 4.5 H, AST 80 H, ALB 2.7 L GI: Pt had 1 BM on 02/04 per RN doc BS: 13 mod risk. Refer to wound assessment report for further details. PES: 1) Altered nutrition related lab values r.t current chronic medical condition aeb hypocalcemia, mild hypoalb 2) Inadequate PO intake r.t current medical/mental condition aeb pt`s pt`s on CLD with GI bleed Comments Will continue to monitor PO status, skin status, pertinent labs and weight trends. Will f/u in 2-3 days 1) Continue to carefully monitor/assist pt with PO intake to meet at least 75% of meals. 2) Advance diet as medically feasible 2) Consider PN support if pt unable to tolerate PO 3) Continue current plan of care
[2020-02-09 13:00] VITALS: BP 159/89
[2020-02-09] MEDS: LABETALOL HCL 5 MG/ML ML 20ML VIAL IV PRN ×2 (13:30→17:15)
[2020-02-09] MEDS: FOLIC ACID 1 MG, MULTIPLE VITAMIN 10 ML, MAGNESIUM SULF SDV 50% 8 MEQ, THIAMINE INJ 100... INJ SCH ×5 (13:30)
--- NOTE | 2020-02-09 16:31 | NUR ---
Assessment Patient is a 65 year old male, who is confused and unable to communicate for Geochemist assessment. Patient has family member Diana Cheng as personal health coach ([phone]). SW attempt to call patient family member several times with no response. SW will continue to contact family member to obtain information about patient. Addendum: 02/09/20 at 1634 by ANGIE CHARLES Amended: Links added.
[2020-02-09 17:00] VITALS: BP 170/79
--- NOTE | 2020-02-09 17:32 | NUR ---
SWALLOW EVALUATED. PATIENT HAS NATURAL TEETH, POOR ORAL CARE. ABLE TO FOLLOW 1 STEP COMMANDS. PATIENT ABLE TO TOLERATE PUREE DIET TEXTURE WITH THIN LIQUIDS WITH NO OVERT SIGNS OR SYMPTOMS OF ASPIRATION. NURSING NOTIFIED.
--- NOTE | 2020-02-09 19:30 | NUR ---
Opening Shift Note Assumed care of patient, drowsy, arouseable to verbal stimuli, oriented mostly to self only. Sitter at bed side for patient safety. No S/S of distress/SOB or pain. Instructed on POC and to call for assist PRN, will continue to monitor for changes Q1hr and PRN.
[2020-02-09] MEDS ORDERED: PPN PER PHARMACY IV NR ×7 (20:00)
[2020-02-09 22:00] VITALS: BP_SYST 117; BP_SYST 149; BP_DIAS 59; BP_DIAS 74
[2020-02-09] MEDS: InsuLIN REG 1unit/0.01ml Soln (100units/ml) SC SCH (23:50)
[2020-02-09] MEDS: ACCU-CHEK COMFORT CURVE STRIP VI SCH (23:50)
[2020-02-10] MEDS ORDERED: DEXTROSE (50%) 50ML SYRG IV SCH
--- NOTE | 2020-02-10 02:00 | NUR ---
Patient confused, trying to get out of bed, trying to pull out connor catheter. Patient had been re-oriented several times, reminded that he has a connor catheter and to try not to pull it. Patient still confused. Connor catheter discontinued at this time due to patient insisting he wants the connor catheter out. Care continued.
[2020-02-10 04:46] VITALS: BP 110/74
[2020-02-10] MEDS: OCTREOTIDE ACETATE 500 MCG in SODIUM CHL 0.9% 99 ML IV SCH (05:46)
[2020-02-10] MEDS: LACTULOSE 20Gm/30ML SOLN PO SCH ×3 (06:00→21:58)
[2020-02-10] MEDS: InsuLIN REG 1unit/0.01ml Soln (100units/ml) SC SCH ×2 (06:00→11:53)
[2020-02-10] MEDS: ACCU-CHEK COMFORT CURVE STRIP VI SCH ×2 (06:18→11:54)
--- NOTE | 2020-02-10 07:30 | NUR ---
Patient had been voiding freely, incontinent, urine blood tinged. Hospitalist paged to inform patient's new status. No call back received. Report given to oncoming shift.
--- NOTE | 2020-02-10 07:55 | NUR ---
Hospitalist Lio Gardner NP called back, updated with patient's status. Advised to observe urine output and to notify oncoming hospitalist. Communication relayed to oncoming RN.
[2020-02-10 08:11] LABS: Albumin 2.4 g/dL (3.4-5.0); Calcium 7.8 mg/dL (8.5-10.1); Magnesium 2.4 mg/dL (1.6-2.6); Potassium 3.6 mmol/L (3.5-5.1)
[2020-02-10 08:19] LABS: BUN/Creatinine Ratio 26.3; Bilirubin, Total 2.4 mg/dL (0.2-1.0); Phosphorus 2.8 mg/dL (2.5-4.90); Total Protein 5.9 g/dL (6.4-8.2)
[2020-02-10 09:00] VITALS: BP 121/70
[2020-02-10] MEDS: levoFLOXacin 500MG 100 ML IV SCH (09:37)
[2020-02-10] MEDS: PANTOPRAZOLE 40 MG/10 ML VIAL INJ IV SCH ×2 (09:37→21:57)
[2020-02-10] MEDS: SUCRALFATE 1 GM/10 ML ORAL SUSP PO SCH (09:37)
[2020-02-10] MEDS: CLOTRIMAZOLE 1 % CREAM 15GM TOP SCH ×2 (09:43→21:58)
--- NOTE | 2020-02-10 10:01 | NUR ---
Informed Esteban PT regarding patient needs a swallow eval.
--- NOTE | 2020-02-10 10:35 | NUR ---
WOUND CARE NOTE: WOUND CONSULT ORDERED FOR PATIENT WITH NEW WOUND TO RIGHT FOREARM. BEDSIDE NURSE NOTED SKIN TEAR UPON ASSESSMENT, WOUND PHOTO TAKEN AT THAT TIME BY BEDSIDE NURSE. PATIENT HAS CURRENT LINDSAY SCORE OF 16. PATIENT NOTED TO HAVE PARTIAL THICKNESS OPEN SKIN TEAR TO THE RIGHT FOREARM. PATIENT WOUND BENEFIT FROM EOD/PRN DRESSING CHANGE WITH THERAHONEY, OPTIFOAM GENTLE DRESSING, SKIN/WOUND CARE PLAN. NO WOUND CARE MONITORING NEEDED. Addendum: 02/10/20 at 1736 by Deborah Jacobson RN Amended: Links added.
[2020-02-10] MEDS: FOLIC ACID 1 MG, MULTIPLE VITAMIN 10 ML, MAGNESIUM SULF SDV 50% 8 MEQ, THIAMINE INJ 100... INJ SCH ×5 (12:43)
[2020-02-10 13:00] VITALS: BP 124/74
--- NOTE | 2020-02-10 14:10 | NUR ---
Dr. Otero at bedside aware of Last BM on 02/03, received new orders, noted and carried it out.
[2020-02-10] MEDS ORDERED: LACTULOSE 20Gm/30ML SOLN PO ONE (14:15)
[2020-02-10] MEDS ORDERED: LORazepam 2MG/ML-1ML VIAL IV PRN (14:30)
[2020-02-10 17:00] VITALS: BP 146/80
--- NOTE | 2020-02-10 18:00 | NUR ---
DRESSING CHANGED TO RT WRIST.
[2020-02-10] MEDS: ENSURE CLEAR Mixed Berry 8oz Carton PO SCH (18:12)
--- NOTE | 2020-02-10 19:30 | NUR ---
Opening Shift Note Assumed care of patient, awake and alert with periods of confusion. Sitter at bedside for patient safety. No S/S of distress/SOB or pain. Instructed on POC and to call for assist PRN, will continue to monitor for changes Q1hr and PRN.
[2020-02-10] MEDS ORDERED: PPN PER PHARMACY IV NR ×7 (20:00)
[2020-02-10 21:37] VITALS: BP 148/78
[2020-02-11 05:45] LABS: Hemoglobin 10.7 g/dL (13.5-17.5)
[2020-02-11 05:48] LABS: Hematocrit 34.6 % (41.0-53.0); Mean Corpuscular Hemoglobin 24.2 pg (28.0-32.0); Mean Corpuscular Volume 78.1 fL (80.0-100.0); Platelet Count (auto) 119 10^3/uL (140-450); Red Blood Cells 4.43 10^6/uL (4.5-5.90)
[2020-02-11 05:52] LABS: Red Cell Distribution Width 24.7 % (11.8-14.3)
[2020-02-11 05:53] LABS: Basophils % (manual) 0 (0.0-2.0); Blast Cells 0; Metamyelocytes % 0; Myelocytes % 0; Promyelocytes % 0; Reactive Lymphocytes 0
[2020-02-11 06:00] VITALS: BP 140/63
[2020-02-11] MEDS: LACTULOSE 20Gm/30ML SOLN PO SCH ×3 (06:00→21:34)
[2020-02-11 06:04] LABS: Albumin 2.4 g/dL (3.4-5.0); Calcium 7.9 mg/dL (8.5-10.1); Magnesium 2.3 mg/dL (1.6-2.6); Potassium 3.4 mmol/L (3.5-5.1)
[2020-02-11 06:08] LABS: BUN/Creatinine Ratio 23.8; Phosphorus 2.4 mg/dL (2.5-4.90)
[2020-02-11 07:01] LABS: Band Neutrophils % (manual) 2
[2020-02-11 07:02] LABS: Eosinophils % (manual) 10 (0-7); Lymphocytes % (manual) 19 (10.0-50.0); Monocytes % (manual) 15 (0-12)
[2020-02-11] MEDS: ENSURE CLEAR Mixed Berry 8oz Carton PO SCH ×3 (08:00→18:34)
[2020-02-11 09:16] VITALS: BP 145/81
[2020-02-11] MEDS: levoFLOXacin 500MG 100 ML IV SCH (09:29)
[2020-02-11] MEDS: CLOTRIMAZOLE 1 % CREAM 15GM TOP SCH ×2 (09:29→21:35)
[2020-02-11] MEDS: SUCRALFATE 1 GM/10 ML ORAL SUSP PO SCH (09:29)
[2020-02-11] MEDS: PANTOPRAZOLE 40 MG/10 ML VIAL INJ IV SCH ×2 (09:29→21:34)
--- NOTE | 2020-02-11 12:59 | NUR ---
Nutrition Followup Note Wt: 96.0 kg Pt was lethargic and unable to answer questions. pt is now off PN support. pt is currently on pureed diet with ensure clear 1 carton tid with poor PO of < 50% x 3 per RN doc as pt refsued toe at per RN. Est energy needs BW 97 [id number] kcal (23-25 kcal/kg BW) , Est protein needs: 58-77 g (0.6-0.8 g/kg BW). Will reassess prn. Reassessed due to elev ammonia LABS: CA 7.9 L, ALB 2.4 L, AMMONIA 46 H RADHA 2.0 H GI: Pt had 1 BM on 02/10 per RN doc BS: 19 mod risk. Refer to wound assessment report for further details. PES: 1) Altered nutrition related lab values r.t current chronic medical condition aeb hypocalcemia, mild hypoalb 2) Inadequate PO intake r.t current medical/mental condition aeb pt`s pt`s on CLD with GI bleed Comments Will continue to monitor PO status, skin status, pertinent labs and weight trends. Will f/u in 3-5 days 1) consider hepatic diet 50 gm protein 2 gm na along with current diet as elev ammonia 2) resume PN support if pt unable to tolerate PO 3) Continue current plan of care Addendum: 02/11/20 at [address] Rec: hepatic diet 60 gm protein 2 gm na chuck
[2020-02-11 13:00] VITALS: BP 137/69
[2020-02-11] MEDS ORDERED: POTASSIUM CHL 20 Meq TABLET PO ONE (13:00)
--- NOTE | 2020-02-11 14:00 | NUR ---
Held lactulose due to patient had BM 3-4 times. aware.
--- NOTE | 2020-02-11 16:12 | NUR ---
Assessment Patient is a 65 year old male, patient was unable to participate in assessment SW II, called next to kin Brother (Donal [phone]). Per brother, patient was alert and oriented prior to admission to [facility]. Per brother, patient was able to do all ADL's and ambulate independently. Per brother, patient appeared depressed and is a heavy drinker. Per brother, patient has been unemployed since the pandemic started. Per brother, patient lives with him and lives in a camper on the property. Per brother, patient will return home post discharge and the brother will provide transportation post discharge. Per brother, patient does not have a POA on file at [facility]. Discharge planning: Patient will return home and follow up with PCP post discharge. will provide resources for alcohol treatment centers for inpatient and outpatient facilities. will provide Advance Directive to patient. Patient has no other post discharge needs to identify at the moment. Addendum: 02/11/20 at 1620 by ANGIE CHARLES Amended: Links added.
[2020-02-11 17:00] VITALS: BP 135/76
[2020-02-11 21:42] VITALS: BP 125/72
[2020-02-12 04:46] VITALS: BP 144/68
[2020-02-12] MEDS: LACTULOSE 20Gm/30ML SOLN PO SCH ×3 (06:02→22:04)
--- NOTE | 2020-02-12 07:50 | NUR ---
Opening Shift Note Assumed care of patient, awake and alertx4 . No S/S of distress/SOB or pain. Instructed on POC and to call for assist PRN. Bed at lowest locked position and call light withinreach. Will continue to monitor for changes Q1hr and PRN.
[2020-02-12 08:00] VITALS: BP 138/71
[2020-02-12] MEDS: ENSURE CLEAR Mixed Berry 8oz Carton PO SCH ×3 (08:00→18:00)
[2020-02-12 08:59] VITALS: BP 138/71
[2020-02-12] MEDS: SUCRALFATE 1 GM/10 ML ORAL SUSP PO SCH (09:37)
[2020-02-12] MEDS: levoFLOXacin 500 MG TAB PO SCH (09:37)
[2020-02-12] MEDS: PANTOPRAZOLE 40 MG/10 ML VIAL INJ IV SCH (09:37)
[2020-02-12] MEDS: CLOTRIMAZOLE 1 % CREAM 15GM TOP SCH ×2 (10:00→22:05)
[2020-02-12 13:00] VITALS: BP 140/79
--- NOTE | 2020-02-12 16:15 | NUR ---
D/C Planning Per social service consult for a walker. Faxed clinical information to [facility] requesting for walker to be deliver to bedside .
[2020-02-12 17:00] VITALS: BP 117/72
--- NOTE | 2020-02-12 17:43 | NUR ---
pain patient is c/o of abdominal pain, rates it 4/10. Paged Hospitalist for orders.
--- NOTE | 2020-02-12 18:39 | NUR ---
ORDERS RECEIVED FOR 50MG TRAMADOL PO Q6H PRN. ORDERS READ BACK AND VERIFIED.
--- NOTE | 2020-02-12 19:43 | NUR ---
care endorsed to NOC RN.
--- NOTE | 2020-02-12 20:00 | NUR ---
Opening Shift Note Assumed care of patient, asleep left undisturbed. No S/S of distress/SOB or pain. Instructed on POC and to call for assist PRN, will continue to monitor for changes Q1hr and PRN.
--- NOTE | 2020-02-12 20:20 | NUR ---
Patient seen asleep, no complained of headache anymore.
[2020-02-12 21:41] VITALS: BP 108/60
--- NOTE | 2020-02-12 22:00 | NUR ---
Complained of headache, no pain med . or tylenol ordered, paged N.pPlacido Rosales with order of [place] 5/325mg.yab. as needed every hour.
[2020-02-12] MEDS: PANTOPRAZOLE 40 MG TAB PO SCH (22:05)
[2020-02-12] MEDS ORDERED: HYDROcodone-ACET 5/325MG TAB PO PRN (22:30)
[2020-02-13] MEDS: LACTULOSE 20Gm/30ML SOLN PO SCH ×2 (05:28→13:48)
[2020-02-13 05:56] VITALS: BP 129/69
--- NOTE | 2020-02-13 07:21 | NUR ---
Report given to Griselda Sanderson, patient is resting no distress.
[2020-02-13] MEDS ORDERED: traMADol HCL 50 MG TAB PO PRN (07:30)
[2020-02-13] MEDS ORDERED: OMNIPAQUE ORAL SOLN 500ml 12mg/ml PO ONE (07:54)
[2020-02-13 08:07] VITALS: BP 139/75
--- NOTE | 2020-02-13 08:07 | NUR ---
Opening Shift Note Received report from overnight cashier nurse, Assumed care of patient, awake and alert. No S/S of distress/SOB or pain. Instructed on POC and reason for being npo for chest CT PER radiology. Will continue to monitor for changes Q1hr and PRN. Addendum: 02/13/20 at 1013 by TALIA KEITH RN RN CHEST X-RAY Addendum: 02/13/20 at 1015 by TALIA KEITH RN RN PATIENT IS GETTING CHEST CT DONE TODAY, NOT CHEST X-RAY.
[2020-02-13 08:46] VITALS: BP 139/75
--- NOTE | 2020-02-13 09:50 | NUR ---
PATIENT TRANSFERRED FROM 277B TO 208 REPORT RECEIVED FROM BIJU ZULETA. PATIENT SITTING UP IN BED, AWAKE AND ALERT. NO S/S OF DISTRESS OR SOB. PATIENT DENIES PAIN AT THIS TIME. UPDATED ON POC. BED LOCKED IN LOWEST POSITION, SIDE RAILS UP X2, CALL LIGHT WITHIN REACH. WILL CONTINUE TO MONITOR FOR CHANGES.
[2020-02-13] MEDS ORDERED: IOHEXOL 300 MG/ML 100ML BOTTLE IJ ONE (10:03)
[2020-02-13] MEDS: ENSURE CLEAR Mixed Berry 8oz Carton PO SCH ×2 (10:19→11:58)
[2020-02-13] MEDS: PANTOPRAZOLE 40 MG TAB PO SCH (10:19)
[2020-02-13] MEDS: levoFLOXacin 500 MG TAB PO SCH (10:19)
[2020-02-13] MEDS: SUCRALFATE 1 GM/10 ML ORAL SUSP PO SCH (10:19)
[2020-02-13] MEDS: CLOTRIMAZOLE 1 % CREAM 15GM TOP SCH (10:30)
--- NOTE | 2020-02-13 12:39 | NUR ---
DC WOUND CARE PHOTO TAKEN RIGHT FOREARM WOUND REDRESSED PER MD ORDERS.
--- NOTE | 2020-02-13 12:41 | NUR ---
PATIENT ROUNDS PATIENT SITTING UP WATCHING TELEVISION, NO S/S OF DISTRESS. PATIENT DENIES PAIN AT THIS TIME. WILL ENDORSE CARE TO SUDHA RN.
[2020-02-13 13:00] VITALS: BP 127/77
--- NOTE | 2020-02-13 13:00 | NUR ---
Rounding/Report Report received from MERLYN Gardner. Patient is resting. No acute distress is noted. Awaits for Dr. Valadez's recommendations before discharge home today.
--- NOTE | 2020-02-13 15:20 | NUR ---
Dr. Valadez rounding Dr. Valadez is in to see patient as per Dr. Bocanegra. He clears patient for discharge home today. Patient will need a PCP referrals to see specialist at [facility] for his esophgeal cancer as recommended by Dr. Valadez and follow up with Dr. Kimmie Osullivan for GI. Patient shows understanding and will see his PCP either tomorrow or next week as stated by patient. Wound pictures are taken for right forearm skin tear by MERLYN Dyson for his ride for discharge.
--- NOTE | 2020-02-13 15:45 | NUR ---
Patient is able to walk in hallway independently. D/C from P.T. Nursing to assist patient as needed.
--- NOTE | 2020-02-13 16:06 | NUR ---
Discharge Discharge education and paperwork provided to the patient per MD order. Patient verbalized understanding. IV removed with aseptic technique, catheter intact. Dressing applied. patient tolerated well, no trauma to site. Telemonitor removed and returned. Patient reports having all personal belongings. Respirations even and unlabored on room air, no distress noted. Patient instructed to notify staff once transportation arrives.
--- NOTE | 2020-02-13 16:10 | NUR ---
Copy of Dr. Valadez's recommendations provided to the patient for tertiary care referral based on patients insurance.
--- NOTE | 2020-02-13 16:40 | NUR ---
Discharge home [facility] without any distress or complaint. Patient is going home with his brother via private vehicle.
== END 2020-02-13 16:54 | disposition home or self-care (01) | DRG 280 ==
LOC: ER 05:36 → EDBD 05:36 → TELE 05:37 → DOU IN ICU 12:06 → TELE-WESTW 02-07 02:37 → TELE-CENTR 02-13 10:01
PROVIDERS: ADMIT Nurse Practitioner Acute Care; ATTEND Internal Medicine
PROC: 0DB88ZX Excision of Small Intestine, Via Natural or Artificial Opening Endoscopic, Diagnostic (ICD-10-PCS; 2020-02-06)
PROC: 0DB68ZX Excision of Stomach, Via Natural or Artificial Opening Endoscopic, Diagnostic (ICD-10-PCS; 2020-02-06)
PROC: 0DB48ZX Excision of Esophagogastric Junction, Via Natural or Artificial Opening Endoscopic, Diagnostic (ICD-10-PCS; principal; 2020-02-06 15:50)
DX: K70.30 Alcoholic cirrhosis of liver without ascites (principal); K29.81 Duodenitis with bleeding; I85.11 Secondary esophageal varices with bleeding; K26.4 Chronic or unspecified duodenal ulcer with hemorrhage; K25.4 Chronic or unspecified gastric ulcer with hemorrhage; F10.231 Alcohol dependence with withdrawal delirium; K29.71 Gastritis, unspecified, with bleeding; E44.0 Moderate protein-calorie malnutrition; K72.90 Hepatic failure, unspecified without coma; G92 Toxic encephalopathy; Z20.828 Contact with and (suspected) exposure to other viral communicable diseases; M48.54XA Collapsed vertebra, not elsewhere classified, thoracic region, initial encounter for fracture; K76.6 Portal hypertension; E87.1 Hypo-osmolality and hyponatremia; D69.59 Other secondary thrombocytopenia; C15.9 Malignant neoplasm of esophagus, unspecified; E86.0 Dehydration; I86.4 Gastric varices; Y90.9 Presence of alcohol in blood, level not specified; D72.819 Decreased white blood cell count, unspecified; E66.9 Obesity, unspecified; I10 Essential (primary) hypertension; D73.1 Hypersplenism; K44.9 Diaphragmatic hernia without obstruction or gangrene; F17.210 Nicotine dependence, cigarettes, uncomplicated; G47.30 Sleep apnea, unspecified; K80.20 Calculus of gallbladder without cholecystitis without obstruction; Z68.27 Body mass index [BMI] 27.0-27.9, adult; Z80.0 Family history of malignant neoplasm of digestive organs; Z80.8 Family history of malignant neoplasm of other organs or systems
CPT/HCPCS: 36415; 71045; 71260; 74176; 74177; 80048; 80053; 81001; 82040; 82105; 82140; 82728; 82962; 83735; 84100; 84478; 84484; 85007; 85025; 85027; 85610; 85730; 86704; 86706; 86708; 86803; 86850; 86900; 86901; 87340; 87426; 92610; 93005; C9113; G0378; J1956; J2250; J2405; J3430; J3490

== ENCOUNTER 2020-02-23 18:35 | Inpatient (IN) | payer MEDICAID ==
[~2020-02-23] VITALS: Ht 182.9 cm; Wt 86.1 kg
[2020-02-23] MEDS ORDERED: ACETAMINOPHEN 500 MG TAB PO ONE (19:30)
[2020-02-23] MEDS ORDERED: LACTATED RINGER'S 1,000 ML IV ONE (20:15)
[2020-02-23] MEDS ORDERED: DexAMETHasone INJECTION 10 MG in D5W 5% 50 ML IV ONE (22:15)
[2020-02-24 00:38] LABS: Hematocrit 35.8 % (41.0-53.0); Hemoglobin 11.4 g/dL (13.5-17.5); Mean Corpuscular Hgb Conc. 31.8 g/dL (32.0-36.0); Mean Corpuscular Volume 75.4 fL (80.0-100.0); Platelet Count (auto) 170 10^3/uL (140-450); Red Blood Cells 4.75 10^6/uL (4.5-5.90)
[2020-02-24 00:41] LABS: Red Cell Distribution Width 24.5 % (11.8-14.3)
[2020-02-24 00:42] LABS: INR 1.17 (0.9-1.15)
[2020-02-24 00:44] LABS: Basophils % (manual) 0 (0.0-2.0); Blast Cells 0; Metamyelocytes % 0; Myelocytes % 0; Promyelocytes % 0; Reactive Lymphocytes 0; White Blood Cell 1.9 10^3/uL (4.4-10.8)
[2020-02-24 00:54] LABS: Alanine Aminotransferase 46 U/L (16-61); Albumin 2.3 g/dL (3.4-5.0); Anion Gap 8 (5-15); Aspartate Aminotransferase 93 U/L (15-37); BUN/Creatinine Ratio 11.8; Blood Urea Nitrogen 14 mg/dL (7-18); Calcium 7.7 mg/dL (8.5-10.1); Carbon Dioxide 23 mmol/L (21-32); Chloride 106 mmol/L (98-107); GFR African American 79 mL/min; GFR Non-African American 66 mL/min; Glucose 108 mg/dL (74-106); Potassium 3.9 mmol/L (3.5-5.1); Sodium 137 mmol/L (136-145)
[2020-02-24 00:59] LABS: Alkaline Phosphatase 326 U/L (45-117); Bilirubin, Total 1.4 mg/dL (0.2-1.0); Total Protein 6.4 g/dL (6.4-8.2)
[2020-02-24 01:16] LABS: CRP High Sensitivity 1.59 mg/dL (< 0.3); Lactate Dehydrogenase 250 U/L (87-241)
[2020-02-24] MEDS ORDERED: ONDANSETRON HCL 4 MG/2 ML VIAL IV PRN (02:45)
[2020-02-24] MEDS ORDERED: MORPHINE SULF INJ 2 MG/ML SYRINGE 1ML IV PRN (02:45)
[2020-02-24] MEDS ORDERED: SODIUM CHLORIDE 0.9% 1,000 ML IV SCH (02:45)
[2020-02-24] MEDS ORDERED: NITROGLYCERIN 0.4 MG SL TAB SL PRN (02:45)
[2020-02-24] MEDS ORDERED: HYDROcodone-ACET 5/325MG TAB PO ONE (05:15)
[2020-02-24] MEDS: ALBUTEROL SULF HFA 90MCG INH 200DOSE IN SCH ×3 (06:00→22:07)
[2020-02-24 06:19] LABS: Band Neutrophils % (manual) 8; Eosinophils % (manual) 2 (0-7); Lymphocytes % (manual) 26 (10.0-50.0); Monocytes % (manual) 14 (0-12)
[2020-02-24] MEDS: BUDESONIDE (INHALATION) 180 MCG IH IN SCH ×3 (10:00→22:07)
[2020-02-24] MEDS ORDERED: DexAMETHasone SOD PHOS 10MG/1ML VIAL INJ IV SCH (10:00)
[2020-02-24] MEDS ORDERED: DOXYCYCLINE 100MG/250ML 250 ML IV SCH (10:00)
[2020-02-24] MEDS ORDERED: cefTRIAXone 1GM/50ML D5W 50 ML IV ONE (15:40)
[2020-02-24] MEDS: CHOLECALCIFEROL (VITD3) 2,000 UNIT CAP PO SCH (15:55)
[2020-02-24] MEDS: ASCORBIC ACID 1,000 MG TAB PO SCH (15:55)
[2020-02-24] MEDS: PANTOPRAZOLE 40 MG TAB PO SCH (15:55)
[2020-02-24] MEDS: LACTULOSE 20Gm/30ML SOLN PO SCH (15:55)
[2020-02-24] MEDS: ZINC SULFATE 220mg CAP or TAB PO SCH (15:55)
[2020-02-24] MEDS ORDERED: AZITHROMYCIN 500MG/ 250ML 250 ML IV ONE (16:15)
--- NOTE | 2020-02-24 23:30 | NUR ---
Telemetry admit from [facility] admitted to Telemetry unit after SBAR received. Patient oriented to SANDRA SHARMA RN primary RN, unit, room, bed, and unit policies regarding patient care and visiting hours. Patient now on continuous telemetry monitoring, tele box # 15 and telemetry reading on arrival to unit is Sinus Rhythm at 76BPM. Patient placed on bedside oxygen, weighed by bedscale and encouraged to call if they need something. All questions and concerns addressed, patient verbalized understanding.
[2020-02-25] VITALS (7 sets, daily range): BP systolic 114–145; BP diastolic 72–90
--- NOTE | 2020-02-25 | NUR ---
Patient is alert, answers questions right, but forgetful and confused at times. Reminder needed that he is in a hospital.
--- NOTE | 2020-02-25 01:00 | NUR ---
20G IV to left hand and left forearm are infiltrated. IV DC'd with sterile technique, catheter fully intact. Pressure dressing applied to site. Patient tolerated procedure well.
--- NOTE | 2020-02-25 02:00 | NUR ---
Urine sample sent to lab
--- NOTE | 2020-02-25 03:00 | NUR ---
IV insertion IV access obtained, via clean sterile technique by inserting 22 gauge catheter at right forearm after first. IV secured properly. No trauma to site. Patient tolerated procedure well.
--- NOTE | 2020-02-25 03:16 | NUR ---
Patient states that he had 4 kinds of medications but are not taking them at all.
[2020-02-25 03:37] LABS: Urine Bacteria FEW /hpf (None Seen); Urine Blood Negative /uL (Negative); Urine Hyaline Cast FEW /lpf (0 - 2); Urine Mucus FEW (None Seen); Urine Specific Gravity 1.035 (1.001-1.035); Urine WBC 2 /hpf (0 - 3)
--- NOTE | 2020-02-25 05:32 | NUR ---
MRSA swab sent to lab
[2020-02-25] MEDS: ALBUTEROL SULF HFA 90MCG INH 200DOSE IN SCH ×3 (06:53→22:19)
[2020-02-25] MEDS: BUDESONIDE (INHALATION) 180 MCG IH IN SCH ×3 (06:54→22:19)
[2020-02-25 07:19] LABS: Basophils # (auto) 0 10 ^3/uL (0-0.2); Eosinophils # (auto) 0 10 ^3/uL (0-0.8); Lymphocytes # (auto) 0.4 10 ^3/uL (0.4-5.4); Monocytes # (auto) 0.1 10 ^3/uL (0-1.3); Neutrophils # (auto) 1.2 10 ^3/uL (1.6-8.6)
[2020-02-25 07:22] LABS: Basophils % (auto) 0.2 % (0.0-2.0); Hematocrit 36.3 % (41.0-53.0); Hemoglobin 11.6 g/dL (13.5-17.5); Mean Corpuscular Hemoglobin 24.1 pg (28.0-32.0); Mean Corpuscular Hgb Conc. 31.9 g/dL (32.0-36.0); Mean Corpuscular Volume 75.7 fL (80.0-100.0); Monocytes % (auto) 7.2 % (0.0-12.0); Neutrophils % (auto) 68.6 % (37.0-80.0); Nucleated Red Blood Cells % 0.1 %; Platelet Count (auto) 176 10^3/uL (140-450); Red Blood Cells 4.79 10^6/uL (4.5-5.90)
[2020-02-25 07:34] LABS: Albumin 2.5 g/dL (3.4-5.0); Calcium 8.2 mg/dL (8.5-10.1); Potassium 4.3 mmol/L (3.5-5.1)
[2020-02-25 07:39] LABS: BUN/Creatinine Ratio 26.4; Total Protein 6.6 g/dL (6.4-8.2)
[2020-02-25 07:41] LABS: Red Cell Distribution Width 24.5 % (11.8-14.3); White Blood Cell 1.8 10^3/uL (4.4-10.8)
--- NOTE | 2020-02-25 08:00 | NUR ---
Opening Shift Note Assumed care of patient, pt is awake and presents periods of confusion. No S/SX of distress/SOB or pain. Instructed on POC, to call for assist PRN, and call light is within reach. Pt is supposed to be on 2L NC but refuses to use it. Bed is locked and in lowest position. Will continue to monitor for changes Q1hr and PRN.
[2020-02-25] MEDS: cefTRIAXone 1GM/50ML D5W 50 ML IV SCH (09:00)
--- NOTE | 2020-02-25 09:47 | NUR ---
MELYSSA DEL CASTILLO PROVIDED UPDATE THIS RN SPOKE WITH PATIENTS MELYSSA BROTHER WHOM THE PATIENT CURRENTLY LIVES WITH: [phone]. PER MELYSSA, SINCE PATIENT WAS DISCHARGED IN JANUARY LAST MONTH THE PATIENT HAS A POOR APPETITE, CONSUMING ONLY ONE OR TWO BITES OF FOOD. PATIENT IS ALSO AN ALCOHOLIC DRINKS ONE LARGE BOTTLE OF VODKA EVERY DAY. THE PATIENT HAS BEEN MORE FORGETFUL AND DEPRESSED SINCE HE BECAME UNEMPLOYED THIS PAST SUMMER AND WILL SIT AND WATCH THE NEWS ALL DAY WHILE DRINKING VODKA. 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
[2020-02-25] MEDS: ZINC SULFATE 220mg CAP or TAB PO SCH (10:00)
[2020-02-25] MEDS: AZITHROMYCIN 500MG/ 250ML 250 ML IV SCH (10:00)
--- NOTE | 2020-02-25 10:00 | NUR ---
Pt Refusal to Meds Pt refused to take some of his morning medications. MD is aware of the pt's refusion. Refer to EMAR.
[2020-02-25] MEDS: CHOLECALCIFEROL (VITD3) 2,000 UNIT CAP PO SCH (10:21)
[2020-02-25] MEDS: ASCORBIC ACID 1,000 MG TAB PO SCH (10:21)
[2020-02-25] MEDS: PANTOPRAZOLE 40 MG TAB PO SCH (10:22)
[2020-02-25] MEDS: LACTULOSE 20Gm/30ML SOLN PO SCH (10:22)
--- NOTE | 2020-02-25 10:37 | NUR ---
RE-ORIENTATED PATIENT PATIENT FOUND SITTING UPRIGHT IN BED REFUSED TO WEAR O2 OR TELE MONITOR . REFUSED VITALS. NO SOB OR DISTRESS. PATIENT THOUGHT HE WAS AT A HOTEL AND WANTED TO ORDER ROOM SERVICE. REMINDED PATIENT HE IS IN THE HOSPITAL PATIENT STATED "I NEED TO SPEAK WITH MY BROTHER ABUNDIO FIRST". DIALED PATIENTS BROTHER FROM THE ROOM, PATIENT LEFT IN BED TALKING CALMLY ON THE PHONE WITH BROTHER ABOUT A NEW CELL PHONE FROM [employer]. BED ALARM ON. CALL LIGHT WITHIN REACH.
--- NOTE | 2020-02-25 11:15 | NUR ---
RESTING IN BED NO DISTRESS,SOB NOTED.
[2020-02-25] MEDS: Ensure HIGH Protein Chocolate 8oz Bottle PO SCH ×3 (12:00→18:42)
--- NOTE | 2020-02-25 14:15 | NUR ---
RADIOLOGY PATIENT TRANSPORTED VIA WC WITH O2 AT 2L SAT98%,NO DISTRESS OR SOB.
--- NOTE | 2020-02-25 14:30 | NUR ---
RETURNED FROM RADIOLOGY' RESTING IN BED. NO SOB OR DISTRESS.
[2020-02-25] MEDS: traMADol HCL 50 MG TAB PO PRN ×2 (16:09→22:09)
--- NOTE | 2020-02-25 16:18 | NUR ---
PAIN REPORTED LOWER BACK PAIN 5/10 TO LOWER BACK, THIS IS A CHRONIC CONDITION; MEDICATION GIVEN ORDERED. WILL CONTINUE TO MONITOR PAIN.
--- NOTE | 2020-02-25 18:59 | NUR ---
END OF SHIFT NOTE PATIENT LEFT SITTING UP IN BED EATING SOME DINNER. PATIENT CHRONIC BACK PAIN 06/02 MANAGED WITH MEDICATION , NEXT PRN DOSE AT 1999. PATIENT NO DISTRESS OR SOB.
--- NOTE | 2020-02-25 19:30 | NUR ---
Opening Shift Note Assumed care of patient, awake and alert. No S/S of distress/SOB or pain. Instructed on POC and to call for assist PRN, will continue to monitor for changes Q1hr and PRN. Bed in low position and call light within reach. Fall precautions in place.
[2020-02-25] MEDS: methylPREDNISolone SOD SUCC 40 MG/ML VL IV SCH (22:09)
[2020-02-26 05:00] VITALS: BP 133/76
[2020-02-26] MEDS: ALBUTEROL SULF HFA 90MCG INH 200DOSE IN SCH (06:14)
[2020-02-26] MEDS: BUDESONIDE (INHALATION) 180 MCG IH IN SCH ×2 (06:14→21:39)
--- NOTE | 2020-02-26 07:15 | NUR ---
report given to dayshift rn patient denies and shows no signs of sob distress or pain
[2020-02-26] MEDS: Ensure HIGH Protein Chocolate 8oz Bottle PO SCH ×4 (08:00→18:00)
--- NOTE | 2020-02-26 08:00 | NUR ---
ASSESSMENT NOTE PT IS LAERT TO SELF, AWARE THETA HE IS AT THE HOSPITAL BUT HE IS VERY FORGETFUL, T TIME, SITUATION, ABLE TO SELF REPOSITION AND VERBALI SHIS NEEDS, PAIN 0/10
[2020-02-26 09:00] VITALS: BP 109/58
[2020-02-26] MEDS ORDERED: ALBUTEROL SULF HFA 90MCG INH 200DOSE IN PRN (10:00)
[2020-02-26] MEDS: cefTRIAXone 1GM/50ML D5W 50 ML IV SCH (10:05)
[2020-02-26] MEDS: LACTULOSE 20Gm/30ML SOLN PO SCH ×2 (10:05→10:09)
[2020-02-26] MEDS: PANTOPRAZOLE 40 MG TAB PO SCH (10:06)
[2020-02-26] MEDS: ZINC SULFATE 220mg CAP or TAB PO SCH (10:06)
[2020-02-26] MEDS: methylPREDNISolone SOD SUCC 40 MG/ML VL IV SCH (10:06)
[2020-02-26] MEDS: ASCORBIC ACID 1,000 MG TAB PO SCH (10:07)
[2020-02-26] MEDS: CHOLECALCIFEROL (VITD3) 2,000 UNIT CAP PO SCH (10:07)
[2020-02-26] MEDS: AZITHROMYCIN 500MG/ 250ML 250 ML IV SCH (10:57)
--- NOTE | 2020-02-26 11:02 | NUR ---
Assessment Patient is a 65 male, patient is unable to participate in initial assessment. Per daughter (Diana [phone]), prior to being admitted to [facility], patient was alert and oriented, patient cognitive abilities are intact. Per daughter, patient lives with his brother Donal ([phone]), per daughter, patient will return home post discharge. Per daughter, patient is employed. Per daughter, patient will have transportation provided by herself or brother post discharge. Per daughter, patient does not have Advance Directive. Discharge planning: Patient will return home post discharge, Patient will follow up care with PCP post discharge. will provide Advance Directive to patient. There are no other discharge needs to address at the moment. Addendum: 02/26/20 at 1109 by ANGIE CHARLES Amended: Links added.
--- NOTE | 2020-02-26 11:30 | NUR ---
IV PT GOT UP, UNAWARE HAT THE AZITHROMYCIN STILL INFUSING, IV CAME OUT, INTACT, PRESSURE APPLIED
--- NOTE | 2020-02-26 11:45 | NUR ---
IV insertion IV access obtained, via clean sterile technique by inserting 22 gauge catheter at after attempt(s). IV secured properly. No trauma to site. Patient tolerated procedure well.
[2020-02-26 13:00] VITALS: BP 126/79
--- NOTE | 2020-02-26 13:00 | NUR ---
LUNCH PT TOLERATED LUNCH WELL, CONTINUE MONITORING
--- NOTE | 2020-02-26 13:35 | NUR ---
DR GALLARDO AT BED SIDE, AWARE THAT PT IS VERY FORGETFUL, INFORM PT THAT THE ABDOMEN CT IS FINE, AND HE WILL GOING TO GET INFUSION OUT PT AND LATER WILL BE DISCHARGE HOME, PT VERBALIS UNDERSTANDING
--- NOTE | 2020-02-26 13:57 | NUR ---
PT CALL ME, SAID THAT HIS BROTHER WENT TO [place] AND HE WILL BE BACK TOMORROW, NO ONE AT HOME TODAY, NO KEYS
--- NOTE | 2020-02-26 14:30 | NUR ---
PAGE DR GALLARDO CALLED BACK, MADE AWARE THAT PATIENT'S FAMILY ARE OUT OF TOWN PER PT AND THEY WILL BE BACK TOMORROW
[2020-02-26 16:58] VITALS: BP 137/79
--- NOTE | 2020-02-26 18:11 | NUR ---
FAMILY PATIENT'S BROTHER CALLED, MADE AWARE THAT PT IS GOING HOME TOMORROW, SAID THAT HE WILL PICK HIM UP BY 5 PM
--- NOTE | 2020-02-26 18:30 | NUR ---
DINNER PT ATE HIS FRUITS, NUTRITION DRINK ONLY, STATED I AM FINE PT CONTINUE STABLE, CONTINUE MONITORING
[2020-02-26] MEDS: traMADol HCL 50 MG TAB PO PRN (19:48)
--- NOTE | 2020-02-26 19:48 | NUR ---
Opening Shift Note Assumed care of patient, awake and alert. No S/S of distress/SOB. Patient reports pain 6/10 headache aching. Patient medicated for pain and quiet environment provided.Instructed on POC and to call for assist PRN, will continue to monitor for changes Q1hr and PRN.
--- NOTE | 2020-02-26 19:48 | NUR ---
Patient educated on how to use Incentive Spirometer. patient verbalized understanding
[2020-02-26 21:50] VITALS: BP 134/79
--- NOTE | 2020-02-27 01:40 | NUR ---
Patient ambulating to use restroom. Denies sob distress or pain
[2020-02-27 05:04] VITALS: BP 123/68
--- NOTE | 2020-02-27 07:14 | NUR ---
report given to dayshift rn patient denies sob distress or pain
--- NOTE | 2020-02-27 07:15 | NUR ---
OPENING SHIFT NOTE ASSUMED CARE OF PATIENT FROM SAFEMAKER RN. PATIENT IS AWAKE, ALERT, AND ORIENTED X1 (PERSON). REORIENTED PATIENT TO TIME,PLACE, AND SITUATION. PATIENT IS CURRENTLY AMBULATING AROUND ROOM AND IS WAITING TO BE DISCHARGED. PATIENT HAS NO S/S OF DISTRESS/SOB OR PAIN AT THIS TIME. INSTRUCTED PATIENT ON POC, PATIENT VERBALIZED UNDERSTANDING. BED IS IN LOWEST POSITION WITH SIDE RAILS RAISED X2, BED WHEELS LOCKED, AND CALL LIGHT IS WITHIN REACH. WILL CONTINUE TO MONITOR.
--- NOTE | 2020-02-27 07:40 | NUR ---
PATIENT TOOK OFF DISCONNECTED TELEMETRY BOX AND I CANNOT FIND THE LEADS. PER PATIENT HE DOES NOT KNOW WHERE THEY ARE. PATIENT ALSO PULLED OUT IV. PER PATIENT HE IS READY TO GO HOME AND DOES NOT NEED AN IV. PATIENT REFUSED 0900 ROCEPHIN. SPOKE WITH BROTHER ABUNDIO AND HE IS WAITING FOR DOCTOR TO CALL HIM.
[2020-02-27 08:00] VITALS: BP 139/79
[2020-02-27] MEDS: Ensure HIGH Protein Chocolate 8oz Bottle PO SCH ×2 (08:28→12:00)
[2020-02-27] MEDS: BUDESONIDE (INHALATION) 180 MCG IH IN SCH (08:34)
[2020-02-27] MEDS: cefTRIAXone 1GM/50ML D5W 50 ML IV SCH ×2 (09:00→10:48)
[2020-02-27 09:22] VITALS: BP 139/79
[2020-02-27] MEDS ORDERED: predniSONE 20 MG TAB PO SCH (10:00)
[2020-02-27] MEDS ORDERED: AZITHROMYCIN 250 MG TAB PO SCH (10:00)
[2020-02-27] MEDS: LACTULOSE 20Gm/30ML SOLN PO SCH (10:00)
[2020-02-27] MEDS: CHOLECALCIFEROL (VITD3) 2,000 UNIT CAP PO SCH (10:50)
[2020-02-27] MEDS: ZINC SULFATE 220mg CAP or TAB PO SCH (10:50)
[2020-02-27] MEDS: ASCORBIC ACID 1,000 MG TAB PO SCH (10:51)
[2020-02-27] MEDS: PANTOPRAZOLE 40 MG TAB PO SCH (10:51)
--- NOTE | 2020-02-27 11:51 | NUR ---
Nutrition Assessment Notes Please refer to link for full assessment notes. Est Energy needs: [id number] kcals (20-23 kcal/kgBW) Est Protein needs: 69-86 gms/day (0.8-1.0 gm/kgBW) Will continue to monitor and reassess prn. Addendum: 02/27/20 at [address] Amended: Links added.
[2020-02-27 13:35] VITALS: BP 141/82
--- NOTE | 2020-02-27 14:00 | NUR ---
TELEMETRY BOX PLACED ON NEW PATIENT ON THE FLOOR. TELE TECHS ARE AWARE
--- NOTE | 2020-02-27 14:00 | NUR ---
SPOKE WITH BROTHER ABUNDIO AND INFORMED HIM PATIENT IS READY FOR DISCHARGE. PER BROTHER HE WILL BE ON HIS WAY.
[2020-02-27 14:14] VITALS: BP 139/79
--- NOTE | 2020-02-27 15:30 | NUR ---
Discharge instructions given as ordered. Encourage to follow up with PMD as instructed. All questions and concerns addressed. Patient verbalized understanding. Medication reconciliation form completed and copy given to patient. Patient taken to vehicle via wheelchair with all personal belongings, accompanied by staff. No distress noted at time of departure.
== END 2020-02-27 13:52 | disposition home or self-care (01) | DRG 720 ==
LOC: EDBD 18:35 → ER 18:55 → TELE 18:56 → TELE-EAST 02-24 23:21
PROVIDERS: ADMIT Nurse Practitioner; ATTEND Internal Medicine
DX: A41.89 Other specified sepsis (principal); U07.1 COVID-19; K70.30 Alcoholic cirrhosis of liver without ascites; J12.89 Other viral pneumonia; D68.9 Coagulation defect, unspecified; D61.818 Other pancytopenia; K76.6 Portal hypertension; E44.0 Moderate protein-calorie malnutrition; D73.1 Hypersplenism; K80.20 Calculus of gallbladder without cholecystitis without obstruction; F17.210 Nicotine dependence, cigarettes, uncomplicated; F10.10 Alcohol abuse, uncomplicated; Y90.9 Presence of alcohol in blood, level not specified; C15.9 Malignant neoplasm of esophagus, unspecified
CPT/HCPCS: 36415; 36600; 71045; 74176; 80053; 81001; 82728; 82805; 83605; 83615; 83690; 83735; 83880; 84484; 85007; 85025; 85027; 85379; 85610; 85730; 86141; 87040; 87081; 87426; 93005; 94640; G0378; J0696; J1100; J3490; J7060

== ENCOUNTER 2020-04-29 16:43 | Emergency (ER) | payer MEDICAID, OTHER ==
[~2020-04-29] VITALS: Ht 180.3 cm; Wt 90.7 kg
[2020-04-29] MEDS ORDERED: MORPHINE SULFATE 4 MG/ML SYR/VIAL IV ONE (17:30)
[2020-04-29] MEDS ORDERED: ONDANSETRON HCL 4 MG/2 ML VIAL IV ONE ×2 (17:30→21:30)
[2020-04-29 17:55] LABS: Basophils # (auto) 0.1 10 ^3/uL (0-0.2); Eosinophils # (auto) 0.2 10 ^3/uL (0-0.8); Lymphocytes # (auto) 1.3 10 ^3/uL (0.4-5.4); Monocytes # (auto) 0.3 10 ^3/uL (0-1.3); Neutrophils # (auto) 0.9 10 ^3/uL (1.6-8.6); Platelet Count (auto) 46 10^3/uL (140-450); Red Blood Cells 4.66 10^6/uL (4.5-5.90); White Blood Cell 2.8 10^3/uL (4.4-10.8)
[2020-04-29 17:56] LABS: Basophils % (auto) 2.6 % (0.0-2.0); Eosinophils % (auto) 6.5 % (0.0-7.0); Hematocrit 39.3 % (41.0-53.0); Hemoglobin 12.7 g/dL (13.5-17.5); Mean Corpuscular Hemoglobin 27.3 pg (28.0-32.0); Mean Corpuscular Hgb Conc. 32.4 g/dL (32.0-36.0); Mean Corpuscular Volume 84.3 fL (80.0-100.0); Monocytes % (auto) 12.1 % (0.0-12.0); Neutrophils % (auto) 32.8 % (37.0-80.0); Nucleated Red Blood Cells % 0.2 %
[2020-04-29 18:06] LABS: Albumin 3.6 g/dL (3.4-5.0); Anion Gap 7 (5-15); Blood Urea Nitrogen 5 mg/dL (7-18); Calcium 8.1 mg/dL (8.5-10.1); Carbon Dioxide 26 mmol/L (21-32); Chloride 113 mmol/L (98-107); Glucose 124 mg/dL (74-106); Potassium 3.2 mmol/L (3.5-5.1); Sodium 146 mmol/L (136-145)
[2020-04-29 18:15] LABS: Alanine Aminotransferase 31 U/L (16-61); Alkaline Phosphatase 137 U/L (45-117); Aspartate Aminotransferase 57 U/L (15-37); BUN/Creatinine Ratio 6.5; Bilirubin, Total 2.1 mg/dL (0.2-1.0); GFR African American 132 mL/min; GFR Non-African American 109 mL/min; Total Protein 7.3 g/dL (6.4-8.2)
[2020-04-29 18:18] LABS: Red Cell Distribution Width 20.3 % (11.8-14.3)
[2020-04-29] MEDS ORDERED: LORazepam 2MG/ML-1ML VIAL IV ONE (21:30)
[2020-04-29] MEDS ORDERED: POTASSIUM CHL 20MEQ/100ML 100 ML IV ONE (21:30)
[2020-04-29] MEDS ORDERED: SODIUM CHLORIDE 0.9% 1,000 ML IV ONE (21:30)
[2020-04-30 02:13] VITALS: BP 152/92
== END 2020-04-30 02:11 | disposition home or self-care (01) ==
LOC: EDUNIT# 16:43 → EDBD 16:43 → ER 16:43
DX: F10.129 Alcohol abuse with intoxication, unspecified (principal); E87.6 Hypokalemia; C15.9 Malignant neoplasm of esophagus, unspecified; R06.02 Shortness of breath; F17.210 Nicotine dependence, cigarettes, uncomplicated; Z20.822 Contact with and (suspected) exposure to COVID-19; Y90.8 Blood alcohol level of 240 mg/100 ml or more
CPT/HCPCS: 36415; 71045; 80053; 80320; 84484; 85025; 87426; 96365; 96366; 96375; 96376; 99285; C9803; J2060; J2270; J2405; J3480; J7030; U0003; 96361; 96374

== ENCOUNTER 2020-08-17 11:40 | Inpatient (IN) | payer MEDICAID ==
[~2020-08-17] VITALS: Ht 180.3 cm; Wt 95.0 kg
[2020-08-17 12:19] LABS: Basophils # (auto) 0.1 10 ^3/uL (0-0.2); Eosinophils # (auto) 0.3 10 ^3/uL (0-0.8); Hemoglobin 9.1 g/dL (13.5-17.5); Lymphocytes # (auto) 1.4 10 ^3/uL (0.4-5.4); Monocytes # (auto) 0.4 10 ^3/uL (0-1.3); Neutrophils # (auto) 1.3 10 ^3/uL (1.6-8.6); White Blood Cell 3.5 10^3/uL (4.4-10.8)
[2020-08-17 12:21] LABS: Basophils % (auto) 1.7 % (0.0-2.0); Eosinophils % (auto) 8.3 % (0.0-7.0); Hematocrit 27.6 % (41.0-53.0); Lymphocytes % (auto) 40.6 % (10.0-50.0); Mean Corpuscular Hgb Conc. 33.1 g/dL (32.0-36.0); Mean Corpuscular Volume 78.6 fL (80.0-100.0); Monocytes % (auto) 10.6 % (0.0-12.0); Neutrophils % (auto) 38.8 % (37.0-80.0); Nucleated Red Blood Cells % 0.1 %; Red Blood Cells 3.51 10^6/uL (4.5-5.90)
[2020-08-17 12:22] LABS: Red Cell Distribution Width 24.6 % (11.8-14.3)
[2020-08-17] MEDS ORDERED: ASPirin 81 mg TAB PO ONE (12:30)
[2020-08-17 12:36] LABS: Albumin 3.5 g/dL (3.4-5.0); Anion Gap 8 (5-15); Blood Urea Nitrogen 7 mg/dL (7-18); Calcium 7.9 mg/dL (8.5-10.1); Carbon Dioxide 25 mmol/L (21-32); Chloride 110 mmol/L (98-107); Glucose 182 mg/dL (74-106); Potassium 3.4 mmol/L (3.5-5.1); Sodium 143 mmol/L (136-145)
[2020-08-17 12:42] LABS: Alanine Aminotransferase 29 U/L (16-61); Alkaline Phosphatase 121 U/L (45-117); Aspartate Aminotransferase 39 U/L (15-37); BUN/Creatinine Ratio 8.3; GFR African American 119 mL/min; GFR Non-African American 98 mL/min
[2020-08-17] MEDS ORDERED: THIAMINE 100mg/ml INJ (200mg/2ml VIAL) IV ONE (13:15)
[2020-08-17] MEDS ORDERED: POTASSIUM EFFERVESENT TAB 25 MEQ PO ONE (13:15)
[2020-08-17] MEDS ORDERED: SODIUM CHLORIDE 0.9% 1,000 ML IV ONE (14:30)
[2020-08-17] MEDS ORDERED: NITROGLYCERIN 0.4 MG SL TAB SL PRN (14:30)
[2020-08-17] MEDS ORDERED: MORPHINE SULFATE INJECTION 2 MG/ML SYRG IV PRN ×2 (14:30)
[2020-08-17] MEDS: SUCRALFATE 1 GM TAB PO SCH ×2 (16:58→20:45)
[2020-08-17 19:24] VITALS: BP 110/77
[2020-08-17] MEDS: ONDANSETRON HCL 4 MG/2 ML VIAL IV PRN (19:30)
[2020-08-17] MEDS: MORPHINE SULFATE INJECTION 2 MG/ML SYRG IV PRN ×2 (19:59→23:53)
[2020-08-17] MEDS: PANTOPRAZOLE 40 MG TAB PO SCH (20:45)
[2020-08-17 22:00] VITALS: BP 146/70
[2020-08-18] MEDS: ONDANSETRON HCL 4 MG/2 ML VIAL IV PRN (02:27)
[2020-08-18] MEDS: MORPHINE SULFATE INJECTION 2 MG/ML SYRG IV PRN ×4 (04:04→21:29)
[2020-08-18 05:00] VITALS: BP 140/68
[2020-08-18] MEDS: SUCRALFATE 1 GM TAB PO SCH ×4 (05:42→21:28)
[2020-08-18 05:58] LABS: Hematocrit 26.7 % (41.0-53.0); White Blood Cell 2.3 10^3/uL (4.4-10.8)
[2020-08-18 06:00] LABS: Hemoglobin 8.7 g/dL (13.5-17.5); Mean Corpuscular Hgb Conc. 32.7 g/dL (32.0-36.0); Mean Corpuscular Volume 79.5 fL (80.0-100.0); Red Blood Cells 3.36 10^6/uL (4.5-5.90)
[2020-08-18 06:19] LABS: Basophils % (manual) 0 (0.0-2.0); Blast Cells 0; Eosinophils % (manual) 0 (0-7); Metamyelocytes % 0; Myelocytes % 0; Promyelocytes % 0; Reactive Lymphocytes 0
[2020-08-18 06:33] LABS: Albumin 3.6 g/dL (3.4-5.0); BUN/Creatinine Ratio 8.7; Calcium 7.6 mg/dL (8.5-10.1); Potassium 3.3 mmol/L (3.5-5.1)
[2020-08-18 06:35] LABS: Bilirubin, Total 3.6 mg/dL (0.2-1.0); Total Protein 6.5 g/dL (6.4-8.2)
[2020-08-18 07:26] LABS: Band Neutrophils % (manual) 9; Lymphocytes % (manual) 27 (10.0-50.0); Monocytes % (manual) 5 (0-12)
[2020-08-18 09:00] VITALS: BP 144/64
[2020-08-18] MEDS: PANTOPRAZOLE 40 MG TAB PO SCH ×2 (09:50→21:28)
[2020-08-18] MEDS: MULTIPLE VITAMIN TAB PO SCH (09:50)
[2020-08-18] MEDS: THIAMINE HCL 100 MG TAB PO SCH (09:52)
[2020-08-18] MEDS ORDERED: POTASSIUM CHL 20MEQ/100ML 100 ML IV SCH (11:45)
[2020-08-18 13:00] VITALS: BP 154/80
[2020-08-18] MEDS ORDERED: POTASSIUM EFFERVESENT TAB 25 MEQ PO ONE (14:00)
[2020-08-18 17:00] VITALS: BP 145/70
[2020-08-18 22:00] VITALS: BP 144/87
[2020-08-19] MEDS: MORPHINE SULFATE INJECTION 2 MG/ML SYRG IV PRN ×6 (01:29→22:29)
[2020-08-19 05:00] VITALS: BP 143/81
[2020-08-19] MEDS: SUCRALFATE 1 GM TAB PO SCH ×4 (06:43→22:28)
[2020-08-19 07:30] VITALS: BP 144/85
[2020-08-19 09:00] VITALS: BP 144/85
[2020-08-19] MEDS: PANTOPRAZOLE 40 MG TAB PO SCH ×2 (09:42→22:28)
[2020-08-19] MEDS: MULTIPLE VITAMIN TAB PO SCH (09:42)
[2020-08-19] MEDS: THIAMINE HCL 100 MG TAB PO SCH (09:42)
[2020-08-19] MEDS ORDERED: LORazepam 2MG/ML-1ML VIAL IV PRN (10:00)
[2020-08-19] MEDS ORDERED: chlordiazePOXIDE HCL 25 MG CAP PO PRN (10:00)
[2020-08-19] MEDS ORDERED: FOLIC ACID 1 MG, MULTIPLE VITAMIN 10 ML, MAGNESIUM SULF SDV 50% 8 MEQ, THIAMINE INJ 100... INJ SCH ×5 (12:00)
[2020-08-19 13:00] VITALS: BP 153/76
[2020-08-19 17:00] VITALS: BP 157/82
[2020-08-19 22:07] VITALS: BP 109/76
[2020-08-19] MEDS: ONDANSETRON HCL 4 MG/2 ML VIAL IV PRN (22:28)
[2020-08-20] MEDS: MORPHINE SULFATE INJECTION 2 MG/ML SYRG IV PRN (02:40)
[2020-08-20 04:55] VITALS: BP 149/76
[2020-08-20] MEDS: SUCRALFATE 1 GM TAB PO SCH (06:03)
== END 2020-08-20 07:40 | disposition left against medical advice (07) | DRG 280 ==
LOC: ER 11:40 → TELE 14:20 → TELE-WESTW 18:58
PROVIDERS: ADMIT Nurse Practitioner Acute Care; ATTEND Internal Medicine Nephrology
DX: K70.30 Alcoholic cirrhosis of liver without ascites (principal); D61.818 Other pancytopenia; F10.121 Alcohol abuse with intoxication delirium; C15.9 Malignant neoplasm of esophagus, unspecified; K80.10 Calculus of gallbladder with chronic cholecystitis without obstruction; D69.59 Other secondary thrombocytopenia; I24.9 Acute ischemic heart disease, unspecified; K76.6 Portal hypertension; I85.10 Secondary esophageal varices without bleeding; E87.6 Hypokalemia; D50.9 Iron deficiency anemia, unspecified; K29.70 Gastritis, unspecified, without bleeding; I10 Essential (primary) hypertension; F41.9 Anxiety disorder, unspecified; R16.1 Splenomegaly, not elsewhere classified; Z53.29 Procedure and treatment not carried out because of patient's decision for other reasons; Z20.822 Contact with and (suspected) exposure to COVID-19; I86.4 Gastric varices; E78.5 Hyperlipidemia, unspecified; F17.210 Nicotine dependence, cigarettes, uncomplicated; Z80.0 Family history of malignant neoplasm of digestive organs; Z80.8 Family history of malignant neoplasm of other organs or systems; Z91.19 Patient's noncompliance with other medical treatment and regimen; Z85.01 Personal history of malignant neoplasm of esophagus; Y90.8 Blood alcohol level of 240 mg/100 ml or more
CPT/HCPCS: 36415; 71045; 80053; 80320; 84484; 85007; 85025; 85027; 87081; 87426; 93005; 96361; 96374; 96375; G0378; J2405; J3480

== ENCOUNTER 2020-09-20 18:32 | Emergency (ER) | payer MEDICAID ==
[~2020-09-20] VITALS: Ht 182.9 cm; Wt 98.9 kg
[2020-09-20 19:37] VITALS: BP 149/85
[2020-09-20] MEDS ORDERED: ASPirin 325 MG TAB PO ONE (19:45)
[2020-09-20 19:51] LABS: Hemoglobin 8.8 g/dL (13.5-17.5); Red Blood Cells 3.94 10^6/uL (4.5-5.90); White Blood Cell 4.3 10^3/uL (4.4-10.8)
[2020-09-20 19:52] LABS: Hematocrit 27.4 % (41.0-53.0); Mean Corpuscular Hemoglobin 22.3 pg (28.0-32.0); Mean Corpuscular Hgb Conc. 32.1 g/dL (32.0-36.0); Mean Corpuscular Volume 69.5 fL (80.0-100.0); Platelet Count (auto) 120 10^3/uL (140-450)
[2020-09-20 20:04] LABS: Albumin 3.6 g/dL (3.4-5.0); Anion Gap 7 (5-15); Blood Urea Nitrogen 7 mg/dL (7-18); Calcium 7.6 mg/dL (8.5-10.1); Carbon Dioxide 24 mmol/L (21-32); Chloride 112 mmol/L (98-107); Glucose 124 mg/dL (74-106); Potassium 3.4 mmol/L (3.5-5.1); Sodium 143 mmol/L (136-145)
[2020-09-20 20:09] LABS: Alanine Aminotransferase 36 U/L (16-61); Alkaline Phosphatase 149 U/L (45-117); Aspartate Aminotransferase 49 U/L (15-37); Bilirubin, Total 1.1 mg/dL (0.2-1.0); GFR African American 129 mL/min; GFR Non-African American 107 mL/min; Total Protein 6.8 g/dL (6.4-8.2)
[2020-09-20 20:22] LABS: Red Cell Distribution Width 29.1 % (11.8-14.3)
[2020-09-20 20:23] LABS: Band Neutrophils % (manual) 0; Basophils % (manual) 0 (0.0-2.0); Blast Cells 0; Metamyelocytes % 0; Monocytes % (manual) 0 (0-12); Myelocytes % 0; Promyelocytes % 0; Reactive Lymphocytes 0
[2020-09-20 21:38] LABS: CRP High Sensitivity 0.023 mg/dL (< 0.3)
[2020-09-20 22:48] LABS: Eosinophils % (manual) 12 (0-7); Lymphocytes % (manual) 49 (10.0-50.0)
== END 2020-09-20 21:06 | disposition left against medical advice (07) ==
LOC: ER 18:33
DX: R07.89 Other chest pain (principal); R11.2 Nausea with vomiting, unspecified; R53.1 Weakness; I10 Essential (primary) hypertension; F17.210 Nicotine dependence, cigarettes, uncomplicated; E78.5 Hyperlipidemia, unspecified
CPT/HCPCS: 36415; 80053; 80320; 82728; 83880; 84484; 85007; 85027; 85049; 85379; 86141; 93005

== ENCOUNTER 2020-09-24 06:10 | Inpatient (IN) | payer MEDICAID ==
[~2020-09-24] VITALS: Ht 180.3 cm; Wt 95.3 kg
[2020-09-24] MEDS ORDERED: HYDROcodone-ACET 10/325MG TAB PO ONE (07:15)
[2020-09-24 07:16] LABS: Hemoglobin 8.4 g/dL (13.5-17.5)
[2020-09-24 07:19] LABS: Hematocrit 26.1 % (41.0-53.0); Mean Corpuscular Hemoglobin 22.1 pg (28.0-32.0); Mean Corpuscular Hgb Conc. 32.2 g/dL (32.0-36.0); Mean Corpuscular Volume 68.6 fL (80.0-100.0); White Blood Cell 5.2 10^3/uL (4.4-10.8)
[2020-09-24 07:28] LABS: Albumin 3.7 g/dL (3.4-5.0); Calcium 8.2 mg/dL (8.5-10.1)
[2020-09-24] MEDS ORDERED: MORPHINE SULFATE 4 MG/ML SYR/VIAL IV ONE ×2 (07:30→11:00)
[2020-09-24] MEDS ORDERED: ONDANSETRON HCL 4 MG/2 ML VIAL IV ONE (07:30)
[2020-09-24 07:33] LABS: Total Protein 6.5 g/dL (6.4-8.2)
[2020-09-24 07:39] LABS: Red Cell Distribution Width 28.4 % (11.8-14.3)
[2020-09-24 07:41] LABS: Band Neutrophils % (manual) 0; Blast Cells 0; Myelocytes % 0; Promyelocytes % 0; Reactive Lymphocytes 0
[2020-09-24 09:12] LABS: Basophils % (manual) 1 (0.0-2.0); Eosinophils % (manual) 3 (0-7); Lymphocytes % (manual) 16 (10.0-50.0); Metamyelocytes % 1; Monocytes % (manual) 8 (0-12)
[2020-09-24] MEDS ORDERED: LORazepam 2MG/ML-1ML VIAL IV ONE (13:00)
[2020-09-24] MEDS ORDERED: NITROGLYCERIN 0.4 MG SL TAB SL PRN ×2 (13:15→17:00)
[2020-09-24] MEDS ORDERED: MORPHINE SULF INJ 2 MG/ML SYRINGE 1ML IV PRN ×2 (13:15→17:00)
[2020-09-24] MEDS ORDERED: THIAMINE 100mg/ml INJ (200mg/2ml VIAL) IV ONE (14:45)
[2020-09-24] MEDS ORDERED: PANT40T PO (15:41)
[2020-09-24 17:00] VITALS: BP 183/92
[2020-09-24] MEDS ORDERED: ONDANSETRON HCL 4 MG/2 ML VIAL IV PRN (17:00)
[2020-09-24] MEDS ORDERED: LORazepam 2MG/ML-1ML VIAL IV PRN (17:00)
[2020-09-24] MEDS ORDERED: LORazepam 0.5 MG TAB PO PRN (17:00)
[2020-09-24] MEDS ORDERED: ALUM & MAG HYDROX-SIMETH LIQ(MAALOX) 30 ML PO PRN (17:00)
[2020-09-24] MEDS ORDERED: ACETAMINOPHEN 325 MG TAB PO PRN (17:00)
[2020-09-24] MEDS ORDERED: FOLIC ACID 1 MG TAB PO ONE (17:00)
[2020-09-24] MEDS ORDERED: ceFAZolin 1GM/50ML 50 ML IV ONE (17:00)
[2020-09-24] MEDS ORDERED: DOCUSATE SOD 100 MG CAP PO PRN (17:00)
[2020-09-24] MEDS ORDERED: PANTOPRAZOLE 40 MG/10 ML VIAL INJ IV ONE (17:00)
[2020-09-24] MEDS: SODIUM CHLORIDE 0.9% 1,000 ML IV SCH (17:36)
[2020-09-24] MEDS: chlordiazePOXIDE HCL 25 MG CAP PO SCH (17:37)
[2020-09-24 18:21] LABS: Cholesterol 147 mg/dL (< 200)
[2020-09-24 18:25] LABS: HDL Cholesterol 55 mg/dL (40-59); LDL Cholesterol 85 mg/dL (< 100); Triglycerides 82 mg/dL (< 150)
[2020-09-24 19:48] LABS: INR 1.29 (0.9-1.15)
[2020-09-24 22:00] VITALS: BP 145/86
[2020-09-24] MEDS: ceFAZolin 1GM/50ML 50 ML IV SCH (22:38)
[2020-09-24] MEDS: MORPHINE SULF INJ 2 MG/ML SYRINGE 1ML IV PRN (22:52)
[2020-09-25] MEDS: chlordiazePOXIDE HCL 25 MG CAP PO SCH ×4 (00:20→22:18)
[2020-09-25 05:00] VITALS: BP 157/80
[2020-09-25] MEDS: MORPHINE SULF INJ 2 MG/ML SYRINGE 1ML IV PRN ×3 (05:25→17:15)
[2020-09-25 06:06] LABS: Hemoglobin 7.9 g/dL (13.5-17.5); White Blood Cell 5.8 10^3/uL (4.4-10.8)
[2020-09-25 06:08] LABS: Mean Corpuscular Hemoglobin 22.1 pg (28.0-32.0); Mean Corpuscular Hgb Conc. 31.7 g/dL (32.0-36.0); Mean Corpuscular Volume 69.7 fL (80.0-100.0); Red Blood Cells 3.58 10^6/uL (4.5-5.90)
[2020-09-25 06:09] LABS: Red Cell Distribution Width 29.4 % (11.8-14.3)
[2020-09-25 06:10] LABS: Band Neutrophils % (manual) 0; Basophils % (manual) 0 (0.0-2.0); Blast Cells 0; Metamyelocytes % 0; Myelocytes % 0; Promyelocytes % 0; Reactive Lymphocytes 0
[2020-09-25] MEDS: ceFAZolin 1GM/50ML 50 ML IV SCH ×3 (06:11→22:13)
[2020-09-25 06:21] LABS: INR 1.26 (0.9-1.15); Partial Thromboplastin Time 25.9 sec (23.0-31.2)
[2020-09-25 06:23] LABS: Chloride 107 mmol/L (98-107); Potassium 3.4 mmol/L (3.5-5.1); Sodium 140 mmol/L (136-145)
[2020-09-25 06:31] LABS: Alanine Aminotransferase 28 U/L (16-61); Albumin 3.6 g/dL (3.4-5.0); Alkaline Phosphatase 116 U/L (45-117); Anion Gap 9 (5-15); Aspartate Aminotransferase 40 U/L (15-37); Bilirubin, Total 3.2 mg/dL (0.2-1.0); Blood Urea Nitrogen 16 mg/dL (7-18); Calcium 7.8 mg/dL (8.5-10.1); Carbon Dioxide 24 mmol/L (21-32); Creatine Kinase IFCC 330 U/L (39-308); GFR African American 119 mL/min; GFR Non-African American 98 mL/min; Glucose 105 mg/dL (74-106); Magnesium 1.8 mg/dL (1.6-2.6); Phosphorus 2.4 mg/dL (2.5-4.90); Total Protein 6.5 g/dL (6.4-8.2); Uric Acid 5.2 mg/dL (3.5-7.2)
[2020-09-25 06:53] LABS: Eosinophils % (manual) 7 (0-7); Lymphocytes % (manual) 26 (10.0-50.0); Monocytes % (manual) 10 (0-12)
[2020-09-25 08:03] LABS: Urine Bacteria NONE SEEN /hpf (None Seen); Urine Blood Negative /uL (Negative); Urine Specific Gravity 1.023 (1.001-1.035); Urine WBC 1 /hpf (0 - 3)
[2020-09-25 08:22] LABS: Alcohol, Urine < 3.0 mg/dL (0-10); Amphetamine Screen, Urine NEGATIVE (NEGATIVE); Barbiturate Scree,Urine NEGATIVE (NEGATIVE); Benzodiazephine Screen, Urine POSITIVE (NEGATIVE); Cannabinoid Screen, Urine NEGATIVE (NEGATIVE); Cocaine Screen, Urine NEGATIVE (NEGATIVE); Opiate Scree,Urine POSITIVE (NEGATIVE); Phencyclidine Screen, Urine NEGATIVE (NEGATIVE)
[2020-09-25 09:20] VITALS: BP 145/68
[2020-09-25] MEDS: PROPRANOLOL HCL 20 MG TAB PO SCH ×2 (09:50→22:18)
[2020-09-25] MEDS: SODIUM CHLORIDE 0.9% 1,000 ML IV SCH (09:50)
[2020-09-25] MEDS ORDERED: PANTOPRAZOLE 40 MG/10 ML VIAL INJ IV SCH (10:00)
[2020-09-25] MEDS ORDERED: FOLIC ACID 1 MG TAB PO SCH (10:00)
[2020-09-25] MEDS ORDERED: THIAMINE HCL 100 MG TAB PO SCH (10:00)
[2020-09-25 13:00] VITALS: BP 146/96
[2020-09-25 17:30] VITALS: BP 133/66
[2020-09-25] MEDS: HYDROcodone-ACET 5/325MG TAB PO PRN ×2 (21:26→22:28)
[2020-09-25 22:00] VITALS: BP 125/69
[2020-09-26] MEDS: SODIUM CHLORIDE 0.9% 1,000 ML IV SCH (02:44)
[2020-09-26 05:00] VITALS: BP 122/65
[2020-09-26] MEDS: ceFAZolin 1GM/50ML 50 ML IV SCH (06:00)
[2020-09-26] MEDS: MORPHINE SULF INJ 2 MG/ML SYRINGE 1ML IV PRN (06:11)
[2020-09-26 08:38] VITALS: BP 135/75
[2020-09-26] MEDS ORDERED: chlordiazePOXIDE HCL 25 MG CAP PO SCH (10:00)
[2020-09-27] MEDS ORDERED: chlordiazePOXIDE HCL 25 MG CAP PO SCH (07:00)
== END 2020-09-26 09:30 | disposition left against medical advice (07) | DRG 342 ==
LOC: EDBD 06:10 → ER 06:10 → TELE 13:09 → TELE-EAST 16:48
PROVIDERS: ADMIT Hospitalist; ATTEND Hospitalist
DX: S82.002A Unspecified fracture of left patella, initial encounter for closed fracture (principal); C15.9 Malignant neoplasm of esophagus, unspecified; D69.6 Thrombocytopenia, unspecified; K76.6 Portal hypertension; D50.9 Iron deficiency anemia, unspecified; E78.00 Pure hypercholesterolemia, unspecified; E78.5 Hyperlipidemia, unspecified; Z20.822 Contact with and (suspected) exposure to COVID-19; F41.9 Anxiety disorder, unspecified; W18.39XA Other fall on same level, initial encounter; R82.4 Acetonuria; F10.239 Alcohol dependence with withdrawal, unspecified; F17.210 Nicotine dependence, cigarettes, uncomplicated; I10 Essential (primary) hypertension; I16.1 Hypertensive emergency; I86.4 Gastric varices; K21.9 Gastro-esophageal reflux disease without esophagitis; K29.00 Acute gastritis without bleeding; K29.20 Alcoholic gastritis without bleeding; Y90.5 Blood alcohol level of 100-119 mg/100 ml; K57.90 Diverticulosis of intestine, part unspecified, without perforation or abscess without bleeding; K74.60 Unspecified cirrhosis of liver; K80.20 Calculus of gallbladder without cholecystitis without obstruction; Y92.89 Other specified places as the place of occurrence of the external cause; Y99.8 Other external cause status; Z80.9 Family history of malignant neoplasm, unspecified; Z85.01 Personal history of malignant neoplasm of esophagus
CPT/HCPCS: 36415; 70450; 71045; 71250; 73560; 73700; 80053; 80061; 80307; 80320; 81001; 82550; 83036; 83735; 83880; 84100; 84146; 84443; 84484; 84550; 85007; 85027; 85049; 85610; 85730; 86850; 86900; 86901; 87040; 87086; 87426; 93005; 93306; 96374; 96375; 96376; C9113; G0378; J0690; J2405

== ENCOUNTER 2020-09-28 08:44 | Emergency (ER) | payer MEDICAID ==
[~2020-09-28] VITALS: Ht 182.9 cm; Wt 99.8 kg
[~2020-09-28 08:44] MED LIST: PANT40T PO
[2020-09-28] MEDS ORDERED: SODIUM CHLORIDE 0.9% 1,000 ML IV ONE ×2 (09:00)
[2020-09-28 09:56] LABS: Chloride 112 mmol/L (98-107); Potassium 3.3 mmol/L (3.5-5.1); Sodium 141 mmol/L (136-145)
[2020-09-28] MEDS ORDERED: ONDANSETRON HCL 4 MG/2 ML VIAL IV ONE (10:00)
[2020-09-28] MEDS ORDERED: MORPHINE SULFATE 4 MG/ML SYR/VIAL IV ONE (10:00)
[2020-09-28 10:14] LABS: Hemoglobin 7.1 g/dL (13.5-17.5); Mean Corpuscular Volume 70.6 fL (80.0-100.0); White Blood Cell 3.9 10^3/uL (4.4-10.8)
[2020-09-28 10:16] LABS: Hematocrit 22.9 % (41.0-53.0); Mean Corpuscular Hemoglobin 21.9 pg (28.0-32.0); Red Blood Cells 3.24 10^6/uL (4.5-5.90)
[2020-09-28 10:18] LABS: Alanine Aminotransferase 26 U/L (16-61); Albumin 3.3 g/dL (3.4-5.0); Alkaline Phosphatase 124 U/L (45-117); Aspartate Aminotransferase 50 U/L (15-37); Bilirubin, Total 1.6 mg/dL (0.2-1.0); Blood Urea Nitrogen 9 mg/dL (7-18); Carbon Dioxide 18 mmol/L (21-32); GFR African American 135 mL/min; GFR Non-African American 112 mL/min; Glucose 140 mg/dL (74-106); Total Protein 6.4 g/dL (6.4-8.2)
[2020-09-28 10:19] LABS: Anion Gap 11 (5-15)
[2020-09-28 10:20] LABS: Red Cell Distribution Width 29.9 % (11.8-14.3)
[2020-09-28 10:21] LABS: Basophils % (manual) 0 (0.0-2.0); Blast Cells 0; Metamyelocytes % 0; Myelocytes % 0; Promyelocytes % 0; Reactive Lymphocytes 0
[2020-09-28 10:44] LABS: Urine Bacteria FEW /hpf (None Seen); Urine Blood 3+ /uL (Negative); Urine Budding Yeast FEW /hpf (None Seen); Urine Mucus FEW (None Seen); Urine Specific Gravity 1.021 (1.001-1.035); Urine WBC 8 /hpf (0 - 3)
[2020-09-28 10:55] LABS: Band Neutrophils % (manual) 1; Eosinophils % (manual) 6 (0-7); Lymphocytes % (manual) 28 (10.0-50.0); Monocytes % (manual) 13 (0-12)
[2020-09-28 10:56] LABS: INR 1.15 (0.9-1.15); Partial Thromboplastin Time 23.2 sec (23.0-31.2)
[2020-09-28] MEDS ORDERED: HYDROcodone-ACET 5/325MG TAB PO PRN (12:45)
[2020-09-28] MEDS ORDERED: SODIUM FERR GLUC 62.5MG/5ML 125 MG in SODIUM CHL 0.9% 100 ML IV ONE (12:45)
[2020-09-28] MEDS ORDERED: POTASSIUM EFFERVESENT TAB 25 MEQ PO ONE (12:45)
[2020-09-28] MEDS ORDERED: NITROGLYCERIN 0.4 MG SL TAB SL PRN (12:45)
[2020-09-28] MEDS ORDERED: FOLIC ACID 1 MG, MULTIPLE VITAMIN 10 ML, MAGNESIUM SULF SDV 50% 8 MEQ, THIAMINE INJ 100... INJ SCH ×5 (12:45)
[2020-09-28] MEDS ORDERED: MORPHINE SULF INJ 2 MG/ML SYRINGE 1ML IV PRN ×2 (12:45)
[2020-09-28] MEDS ORDERED: ONDANSETRON HCL 4 MG/2 ML VIAL IV PRN (12:45)
[2020-09-28] MEDS ORDERED: chlordiazePOXIDE HCL 25 MG CAP PO PRN (12:45)
[2020-09-28] MEDS ORDERED: cefTRIAXone W LIDOCAINE 1 GM IM IM ONE (17:00)
[2020-09-28] MEDS ORDERED: FERROUS SULFATE 325mg EC TAB PO ONE (17:00)
[2020-09-28 17:17] VITALS: BP 120/53
[2020-09-28] MEDS ORDERED: cefTRIAXone 1GM/50ML D5W 50 ML IV ONE (17:25)
[2020-09-28] MEDS ORDERED: cefTRIAXone 1GM/50ML D5W 50 ML IV SCH (17:38)
[2020-09-29] MEDS ORDERED: PANTOPRAZOLE 40 MG TAB PO SCH (10:00)
== END 2020-09-28 16:51 | disposition home or self-care (01) ==
LOC: ER 08:44 → EDBD 08:44 → OVERFLOW 12:36 → UNDOADMIN 12:36 → OVERFLOW 16:51 → UNDODISIN 17:53
DX: S82.042A Displaced comminuted fracture of left patella, initial encounter for closed fracture (principal); N39.0 Urinary tract infection, site not specified; M25.462 Effusion, left knee; F41.9 Anxiety disorder, unspecified; I10 Essential (primary) hypertension; E78.5 Hyperlipidemia, unspecified; F17.210 Nicotine dependence, cigarettes, uncomplicated; Z20.822 Contact with and (suspected) exposure to COVID-19; Z80.9 Family history of malignant neoplasm, unspecified; Z79.899 Other long term (current) drug therapy; Z88.5 Allergy status to narcotic agent; W18.39XA Other fall on same level, initial encounter; Y93.89 Activity, other specified; Y92.89 Other specified places as the place of occurrence of the external cause; Y99.8 Other external cause status
CPT/HCPCS: 36415; 71045; 73700; 80053; 80320; 81001; 84484; 85007; 85027; 85049; 85610; 85730; 87426; 96361; 96374; 96375; 99285; J0696; J2270; J2405; J2916; J3411; J3475; J7030; J7070; U0003; G0378

== ENCOUNTER 2020-09-29 11:55 | Emergency (ER) | payer MEDICAID ==
[~2020-09-29] VITALS: Ht 177.8 cm; Wt 79.4 kg
[2020-09-29 12:00] VITALS: BP 97/67
== END 2020-09-29 14:18 | disposition left against medical advice (07) ==
LOC: ER 11:55
DX: M25.562 Pain in left knee (principal); Z53.21 Procedure and treatment not carried out due to patient leaving prior to being seen by health care provider

== ENCOUNTER 2020-12-27 13:05 | Emergency (ER) | payer MEDICAID ==
[~2020-12-27] VITALS: Ht 182.9 cm; Wt 81.6 kg
[2020-12-27 13:12] VITALS: BP 122/79
[2020-12-27] MEDS ORDERED: SODIUM CHLORIDE 0.9% 1,000 ML IV ONE (13:15)
[2020-12-27 13:35] LABS: Basophils # (auto) 0.1 10 ^3/uL (0-0.2); Basophils % (auto) 1.4 % (0.0-2.0); Eosinophils # (auto) 0.2 10 ^3/uL (0-0.8); Eosinophils % (auto) 4.2 % (0.0-7.0); Hematocrit 38.8 % (41.0-53.0); Lymphocytes % (auto) 20.9 % (10.0-50.0); Mean Corpuscular Hemoglobin 22.9 pg (28.0-32.0); Mean Corpuscular Hgb Conc. 30.9 g/dL (32.0-36.0); Monocytes # (auto) 0.7 10 ^3/uL (0-1.3); Monocytes % (auto) 15.6 % (0.0-12.0); Neutrophils # (auto) 2.8 10 ^3/uL (1.6-8.6); Neutrophils % (auto) 57.9 % (37.0-80.0); Red Blood Cells 5.24 10^6/uL (4.5-5.90); Red Cell Distribution Width 23.7 % (11.8-14.3); White Blood Cell 4.8 10^3/uL (4.4-10.8)
[2020-12-27 13:53] LABS: INR 1.18 (0.9-1.15); Partial Thromboplastin Time 25.9 sec (23.6-33.0)
[2020-12-27] MEDS ORDERED: GASTROGRAFIN 120 ML SOL ONE (14:35)
[2020-12-27 14:37] LABS: Albumin 3.4 g/dL (3.4-5.0); Anion Gap 6 (5-15); Blood Urea Nitrogen 13 mg/dL (7-18); Calcium 8.9 mg/dL (8.5-10.1); Carbon Dioxide 25 mmol/L (21-32); Chloride 109 mmol/L (98-107); Glucose 157 mg/dL (74-106); Potassium 3.8 mmol/L (3.5-5.1); Sodium 140 mmol/L (136-145)
[2020-12-27 14:42] LABS: Alanine Aminotransferase 40 U/L (16-61); Alkaline Phosphatase 105 U/L (45-117); Aspartate Aminotransferase 38 U/L (15-37); BUN/Creatinine Ratio 14.4; Bilirubin, Total 1.7 mg/dL (0.2-1.0); GFR African American 110 mL/min; GFR Non-African American 91 mL/min; Total Protein 6.8 g/dL (6.4-8.2)
== END 2020-12-27 15:43 | disposition admitted as inpatient to this hospital (09) ==
LOC: ER 13:05
DX: K22.0 Achalasia of cardia (principal); I10 Essential (primary) hypertension; E78.5 Hyperlipidemia, unspecified; F17.210 Nicotine dependence, cigarettes, uncomplicated; Z79.899 Other long term (current) drug therapy; Z88.5 Allergy status to narcotic agent
CPT/HCPCS: 36415; 71045; 74220; 80053; 84484; 85025; 85610; 85730; 99284; Q9963

== ENCOUNTER 2021-01-06 11:54 | Emergency (ER) | payer MEDICAID ==
[~2021-01-06] VITALS: Ht 180.3 cm; Wt 82.6 kg
[2021-01-06 11:54] VITALS: BP 135/78
[2021-01-06 13:40] LABS: Basophils # (auto) 0.1 10 ^3/uL (0-0.2); Monocytes # (auto) 0.5 10 ^3/uL (0-1.3); Red Cell Distribution Width 24.4 % (11.8-14.3)
[2021-01-06 13:42] LABS: Basophils % (auto) 1.3 % (0.0-2.0); Eosinophils # (auto) 0.3 10 ^3/uL (0-0.8); Eosinophils % (auto) 6.7 % (0.0-7.0); Hematocrit 38.5 % (41.0-53.0); Hemoglobin 11.8 g/dL (13.5-17.5); Lymphocytes % (auto) 23.9 % (10.0-50.0); Mean Corpuscular Hemoglobin 23.1 pg (28.0-32.0); Mean Corpuscular Hgb Conc. 30.7 g/dL (32.0-36.0); Mean Corpuscular Volume 75.4 fL (80.0-100.0); Monocytes % (auto) 11.5 % (0.0-12.0); Neutrophils # (auto) 2.4 10 ^3/uL (1.6-8.6); Neutrophils % (auto) 56.6 % (37.0-80.0); Nucleated Red Blood Cells % 0.1 %; Red Blood Cells 5.11 10^6/uL (4.5-5.90); White Blood Cell 4.3 10^3/uL (4.4-10.8)
[2021-01-06 13:47] LABS: Albumin 3.4 g/dL (3.4-5.0); Anion Gap 5 (5-15); Blood Urea Nitrogen 14 mg/dL (7-18); Calcium 8.9 mg/dL (8.5-10.1); Carbon Dioxide 26 mmol/L (21-32); Chloride 110 mmol/L (98-107); Glucose 100 mg/dL (74-106); Magnesium 2.4 mg/dL (1.6-2.6); Sodium 141 mmol/L (136-145)
[2021-01-06 13:53] LABS: Alanine Aminotransferase 38 U/L (16-61); Alkaline Phosphatase 103 U/L (45-117); Aspartate Aminotransferase 37 U/L (15-37); BUN/Creatinine Ratio 18.9; Bilirubin, Total 1.1 mg/dL (0.2-1.0); GFR African American 137 mL/min; GFR Non-African American 114 mL/min; Total Protein 6.6 g/dL (6.4-8.2)
[2021-01-06] MEDS ORDERED: SODIUM CHLORIDE 0.9% 500 ML IV ONE (14:30)
[2021-01-06] MEDS ORDERED: PANTOPRAZOLE 40 MG/10 ML VIAL INJ IV ONE (14:30)
[2021-01-06 16:34] LABS: Urine Bacteria FEW /hpf (None Seen); Urine Blood Negative /uL (Negative); Urine Mucus MANY (None Seen); Urine Specific Gravity 1.028 (1.001-1.035); Urine WBC 1 /hpf (0 - 3)
== END 2021-01-06 16:47 | disposition left against medical advice (07) ==
LOC: ER 11:54
DX: R53.1 Weakness (principal); R10.84 Generalized abdominal pain; R07.89 Other chest pain; I10 Essential (primary) hypertension; E78.5 Hyperlipidemia, unspecified; F17.210 Nicotine dependence, cigarettes, uncomplicated; Z90.89 Acquired absence of other organs; Z79.899 Other long term (current) drug therapy; Z88.8 Allergy status to other drugs, medicaments and biological substances
CPT/HCPCS: 36415; 74176; 80053; 80320; 81001; 83735; 84484; 85025; 93005